=== PATIENT | female | born 1945 | race Caucasian/White ===

== ENCOUNTER → 2021-02-13 10:11 | Outpatient (CLI) | payer MEDICARE, BC, SELFPAY ==
[2021-02-04 16:01] VITALS: BMI 36.6
--- NOTE | 2021-02-13 10:13 | US_ITS ---
STUDY: ULTRASOUND BREAST - RIGHT REASON FOR EXAM: Female, 76 years old. Abnormal screening mammogram. Right breast mass. TECHNIQUE: Axial and longitudinal images of the RIGHT breast were performed with a high resolution ultrasound transducer. # OF IMAGES: 40 COMPARISON: Comparison is made with prior mammogram done earlier today. FINDINGS: RIGHT Breast: There is a 9.1 cm x 7.7 cm x 3.5 cm complex solid and cystic mass in the upper outer quadrant of the breast corresponding to the mammographic findings. There is a 1.1 cm x 0.9 cm x 1 cm hypoechoic irregular mass at the 5 o''clock position of the breast at 5 cm from the nipple. A biopsy is recommended. US/Breast Limited Unilateral IMPRESSION: 1.1 cm x 0.9 cm x 1 cm irregular hypoechoic solid mass at the 5 o''clock position of the breast at 5 cm from the nipple. A biopsy is recommended. 9.1 cm x 7.7 cm x 3.5 cm complex solid and cystic mass occupying the upper outer quadrant of the right breast. ASSESSMENT CATEGORY: BIRADS Category 5: Highly Suggestive of Malignancy - Appropriate Action Should Be Taken. A letter regarding these results will be sent to the patient by the facility within 30 days. Electronically Signed: Anam Peña MD at 11:40 EDT , Service support ,
--- NOTE | 2021-02-13 10:13 | BI_ITS ---
MAMMOGRAPHY - BILATERAL DIAGNOSTIC REASON FOR EXAM: Female, 76 years old. Recent drainage of a right cyst/abscess. PERTINENT HISTORY: Non-contributory. TECHNIQUE: Digital bilateral breast abbie (3D mammographic acquisition) in the CC and MLO projections. 2-D mediolateral oblique (MLO) and craniocaudad (CC) views of both breasts were obtained. CAD: Full Field Digital Mammography with Computer Added Detection was performed. COMPARISON: None. Baseline examination. FINDINGS: Breast Composition: There are scattered areas of fibroglandular density. There is a 9.5 cm x 12.8 cm soft tissue density in the upper lateral aspect of the right breast. Air-fluid levels are seen in keeping with a history of recent drainage. This also evidence of a 1 cm x 0.9 cm irregular nodule in the deep inferior medial portion of the right breast. Correlation with ultrasound of both abnormalities recommended. No other significant abnormalities are identified. BI/DIAG MAMM W/CAD, BILAT IMPRESSION: Suspicious 1 cm x 0.9 cm nodule in the deep inferior medial portion of the right breast. Correlation with ultrasound is recommended. Correlation with ultrasound of the large fluid collection in the upper outer quadrant of the right breast is recommended as well. ASSESSMENT CATEGORY: BIRADS Category 0: Incomplete. Need additional imaging evaluation. A letter regarding these results will be sent to the patient by the facility within 30 days. Approximately 10% of breast cancers are not detected by mammography. A normal mammogram should not delay biopsy of a clinically suspicious abnormality. Electronically Signed: Anam Peña MD at 11:08 EDT , Service support ,
== END ==
PROVIDERS: Referring Provider Surgery; Visit Provider Surgery
DX: N63.10 Unspecified lump in the right breast, unspecified quadrant (principal); R92.8 Other abnormal and inconclusive findings on diagnostic imaging of breast
CPT/HCPCS: 76642; 77062; 77066; G0279

== ENCOUNTER → 2021-02-19 | Outpatient (CLI) | payer MEDICARE, BC, SELFPAY ==
--- NOTE | 2021-02-19 | IMM_PTH ---
PATIENT: RUTH THOMSON LOC: [facility] U#:[id number] AGE/SX: 76/F ROOM: RE02/19/[address]: Dr. Mainor Rene MD : 1945 BED: DIS: 02/19/2021 SPEC #: [id number] RECD: 02/23/21 11:49 STATUS: ANGELIKA REQ #: [id number] JT: 02/19/21 00:[address]: Mainor Rene DEPT: IMMUNOHISTOCHEMISTRY RECD BY: Stephanie Hyman ENTERED: 02/23/21 11:51 SP TYPE: IMMUNO OTHR DR: No Primary Care Phys Tissues: Right breast, NOS Procedures: CALPONIN-1 (add) CK5-6 (add) CK8 (add) E-CAD (add) HER2 URIEL (add) KI-67 (add) P53 (add) MA (add) IN SITU HYBRIDIZATION P40 (add) ER (initial) PHYSICIAN & INSTITUTION [address] [address] SPECIMEN INFORMATION: Tissue Source: Right breast Clinical Info: Right breast mass and seroma Specimen Number: [id number] CPT code: 64967, 46236 x6, 77561 x3, 38338 x2 METHODOLOGY: Deparaffinized sections of prefer/formalin-fixed tissue or PAP/DQ stained slides are incubated with monoclonal/polyclonal antibodies/oligonucleotide probes. Localization is made via biotin free immunoperoxidase method. Appropriate controls are performed and reacted as expected. Results on target cell population are indicated in the following table: RESULTS: ANTIBODY / CLONE RESULT E-Cad (ECH-6) positive CK8 (53remzU67) positive Calponin-1 (BH811V) negative CK5-6 (D5 & 1684) negative P40 (BC28) negative P53 (DO-7) positive, rare cells Ki-67 (30-9) positive, low MORPHOMETRIC ANALYSIS ER (clone 6F11) >95%, strong intensity MA (clone 16/1E2) 48%, weak intensity Her-2Neu (clone CB11) 2+ The prognostic test for HER2 is performed on formalin-fixed paraffin embedded tissue. A 3+ (positive) staining pattern is defined as intense, homogeneous, complete, circumferential membranous staining in >10% of contiguous tumor cells. A similar weak (2+) staining pattern is interpreted as equivocal. AMY follow-up testing is recommended for all equivocal cases. Positivity/negativity for ER/MA is reported if > or < 1% of the tumor cells are immuno- reactive, respectively. The ASCO/CAP criteria is used for scoring. Reference: Journal of Clinical Oncology, 2013; 31:1220-7342 & 2010; 16:2349-9712. Duration of fixation: 77 Hrs; Sample Adequate: Yes. These assays have not been validated on decalcified tissues. Results should be interpreted with caution given the likelihood of false negativity on decalcified specimens. These tests were developed and their performance characteristics determined by [facility]. They may not have been cleared or approved by the U.S. Food and Drug Administration. The FDA has determined that such clearance or approval is not necessary. The above immunohistochemical/dualISH markers are ordered and reviewed by the Pathologist. 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 Positive for estrogen receptors (favorable prognostic indicator). Positive for progesterone receptors (favorable prognostic indicator). Equivocal for overexpression of SSV7qxh. SJ:navid 02/24/2021 ADDENDUM ADDENDUM ADDENDUM ADDENDUM ADDENDUM ADDENDUM ADDENDUM ADDENDUM ADDENDUM ADDENDUM ADDENDUM ADDENDUM ADDENDUM ADDENDUM ADDENDUM ADDENDUM ADDENDUM ADDENDUM ADDENDUM ADDENDUM ADDENDUM ADDENDUM 02/25/2021 12:00 ADDENDUM 02/25/2021 12:00 ADDENDUM 02/25/2021 12:00 ADDENDUM 02/25/2021 12:00 ADDENDUM 02/25/2021 12:00 IN SITU HYBRIDIZATION (AMY) FOR HER2 Interpretation: Negative / Not Amplified HER2 : CEP-17 Ratio: 0.9 Average HER2 Signal: 1.6 Average CEP-17 Signal: 1.85 Number of Tumor Cells Scanned: 50 Interpretative Information: The INFORM HER2 Dual AMY DNA Probe Cocktail assay is performed on formalin-fixed paraffin embedded tissue and determines HER2 gene status by detecting HER2 copies via silver in situ hybridization (SISH) and Chromosome 17 copies via chromogenic red in situ hybridization on tumor cells. A minimum of 20 cells representing > 10% of contiguous and homogeneous invasive tumor cells were analyzed. HER2 gene status is classified as Non-amplified (HER2/Chr17 ratio < 2.0) or Amplified (HER2/Chr17 ratio greater than or equal to 2.0). If the resulting HER2/Chr17 ratio falls within 1.8 - 2.2 (Borderline), retesting by FISH is recommended. Reference: Daniel AC, Deandre HUIZARH, Juanpablo DG, et al: Recommendations for Human Epidermal Growth Factor Receptor 2 Testing in Breast Cancer: [place] Society of Clinical On[employer] / [employer] of [place] [employer] Clinical Practice Guideline Update. J Clin Oncol 31:4152-3606, 2013. SJ:navid 02/25/2021
--- NOTE | 2021-02-19 14:30 | BRBX_PTH ---
PATIENT: RUTH THOMSON LOC: [facility] U#:[id number] AGE/SX: 76/F ROOM: RE02/19/[address]: Dr. Mainor Rene MD : 1945 BED: DIS: 02/19/2021 SPEC #: [id number] RECD: 02/19/21 15:34 STATUS: ANGELIKA CHUNG #: [id number] JT: 02/19/21 14:[address]: Mainor Rene DEPT: SURGICAL PATHOLOGY RECD BY: Estelita Nicholas ENTERED: 02/20/21 10:45 SP TYPE: BREAST BX OTHR DR: No Primary Care Phys Tissues: Right breast, NOS Procedures: Surgery Specimen Level IV HEADER OPERATION: Right breast biopsy and seroma drainage PRE-OP DIAGNOSIS: Right breast mass and seroma right breast TISSUE SUBMITTED: Right breast tissue MICROSCOPIC DIAGNOSIS Right breast mass, core biopsy: Invasive ductal carcinoma, nuclear grade 1-2/3 (1 cm in greatest length). See comment. REMINGTON:navid 02/23/2021 COMMENT Immunohistochemistry ([id number]) supports the above diagnosis. ER/MS/Mvs4wwd studies are being performed on sections of tumor and the results from this study will be reported separately ([id number]). MICROSCOPIC DESCRIPTION Slides are reviewed. GROSS DESCRIPTION Received in fixative is one container labeled with the patient name and designated right breast. The specimen consists of two elongated fragments of castillo-yellow fibroadipose tissue that in aggregate measure 1.5 x 0.2 x 0.1 cm. The entire specimen is submitted in one cassette. / REMINGTON:navid 02/20/21 TC:0 CPT: 69497
== END | disposition home or self-care (01) ==
LOC: LABSPEC 02-20 08:12
PROVIDERS: Referring Provider Surgery; Visit Provider Surgery
DX: C50.911 Malignant neoplasm of unspecified site of right female breast (principal)
CPT/HCPCS: 88305; 88341; 88342; 88368

== ENCOUNTER 2021-03-17 10:27 | Day surgery (SDC) | payer MEDICARE, BC, SELFPAY ==
--- NOTE | 2021-03-17 | AXNB_PTH ---
PATIENT: RUTH THOMSON LOC: [facility] [place] U#:[id number] AGE/SX: 76/F ROOM: RE03/17/[address]: Dr. Sherin Linton MD : 1945 BED: DIS: 03/17/2021 SPEC #: [id number] RECD: 03/17/21 14:17 STATUS: ANGELIKA REAsh #: [id number] JT: 03/17/21 00:[address]: Sherin Linton DEPT: SURGICAL PATHOLOGY RECD BY: Stephanie Hyman ENTERED: 03/17/21 14:59 SP TYPE: AX NODE BX OTHR DR: No Primary Care Phys Tissues: A - Axillary lymph node, NOS B - Axillary lymph node, NOS C - Right breast, NOS D - Right breast, NOS E - Right breast, NOS F - Right breast, NOS Procedures: Frozen Section (charge) Frozen Section Add'l ([facility]) Surgery Specimen Level IV Surgery Specimen Level V HEADER OPERATION: Excision seroma cavity right breast, 9 o?clock location PRE-OP DIAGNOSIS: Right breast mass, cancer TISSUE SUBMITTED: A - Right axillary sentinel node, FS, B - Right axillary sentinel lymph node #2, FS, C - Right breast mass, long suture - lateral, short suture - superior, D - Right breast new deep margin, long lateral suture, short suture - new deep margin, E - Seroma cavity posterior and deep, single long suture - lateral, short double stitch - superior, long double stitch margin - posterior, F - Anterior medial border seroma cavity, short single stitch - medial, single long stitch - anterior, double long stitch - new medial margin FROZEN SECTION DIAGNOSIS A. Right axillary sentinel lymph node, biopsy: One lymph node, positive for metastatic carcinoma. B. Right axillary sentinel lymph nodes #2, biopsy: Two out of two lymph nodes, negative for metastatic carcinoma. REMINGTON:navid 03/17/2021 MICROSCOPIC DIAGNOSIS A. Right axillary sentinel lymph node, biopsy: One lymph node, positive for metastatic carcinoma. See comment. B. Right axillary sentinel lymph nodes #2, biopsy: Two out of two lymph nodes, negative for metastatic carcinoma. See comment. C. Right breast mass, needle localization lumpectomy: Invasive ductal carcinoma. Ductal carcinoma in situ. See cancer summary in the comment section. D. Right breast new deep margin: Negative for carcinoma. E. 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 See cancer summary in the comment section. F. Seroma cavity, anterior and medial border: Fibrocystic changes and intraductal hyperplasia with focal atypia. Focal fibrosis and chronic inflammation consistent with changes consistent with seroma cavity. REMINGTON:navid 03/20/2021 COMMENT A. The largest focus of metastasis measures 0.6 cm in greatest dimension. Extranodal extension is not identified. B. The lymph nodes are negative for metastatic carcinoma on multiple H & E levels and immunohisto-chemical stains for cytokeratins ([id number]). BREAST CANCER SUMMARY (Specimen A, B, C & D): Procedure - excision with needle localization Specimen laterality ? right Invasive tumor: Tumor site ? invasive carcinoma ? lower inner quadrant, as per EMR. Tumor size ? 1.2 x 1 x 1 cm Histologic type ? invasive ductal carcinoma, not otherwise specified Histologic grade (Perez grade): Glandular/tubular differentiation score - 3 Nuclear pleomorphism score - 1 Mitotic count score - 1 Overall grade ? grade 1 (score of 5) Tumor focality ? single focus of invasive carcinoma Ductal carcinoma in situ ? present. Size (extent) of DCIS: ductal carcinoma present adjacent to the invasive carcinoma and comprise about 20% of total tumor volume. Number of blocks with DCIS ? 2 Number of blocks examined ? 10 Architectural pattern ? comedo, solid and solid papillary carcinoma Nuclear grade ? grade 1 Necrosis ? present, central (expansive ?comedo? necrosis). Lobular carcinoma in situ ? not present Tumor extension: Skin ? not present Nipple ? not applicable Skeletal muscle ? no skeletal muscle is present Margins: Invasive carcinoma margin ? invasive carcinoma and ductal carcinoma in situ are 0.1 cm away from the closest posterior margin in the specimen C; however, the new posterior margin, specimen D is 0.5 cm in greatest thickness and negative for carcinoma. Overall, the both invasive and in situ carcinoma are 0.6 cm away from the posterior margin. Ductal carcinoma in situ margin ? DCIS is 0.2 cm away from the closest inferior margin. Regional lymph nodes: Total number of lymph nodes examined ? 3 Number of sentinel lymph nodes examined - 3 Number of lymph nodes with macrometastases ? 1 Number of lymph nodes with micrometastases and isolated tumor cells ? 0 Size of largest metastatic deposits ? 0.6 cm Extranodal extension ? not present. Treatment effect ? no known presurgical therapy. Lymphvascular invasion ? not identified Dermal lymphvascular invasion ? not identified Additional Pathologic Findings ? fibrocystic changes Ancillary Studies: Previously performed ([id number] / [id number]) ER: positive (>95%, strong intensity) AK: positive (48%, weak intensity) Mgy6lnl: equivocal (2+) Rwu0fti by AMY: Negative / not amplified Microcalcifications ? not identified Clinical History - Please make reference to previous specimen ([id number]) right breast mass, core biopsy with diagnosis of invasive ductal carcinoma. Radiologic findings ? mass PATHOLOGIC STAGE: pT1b pN1a(sn) pMx BREAST CANCER SUMMARY (Specimen E & F) Procedure - excision Specimen laterality ? right Tumor site ? upper outer quadrant as per EMR Size (extent) of DCIS - largest focus of DCIS measures 2.5 cm in greatest dimension. As per EMR, the mammography report shows a solid cystic mass 12.8 cm in greatest dimension. Correlation with clinical and radiologic findings are necessary for exact size of lesion. Number of blocks with DCIS ? 9 Number of blocks examined - 24 Histologic type ? encapsulated papillary intraductal carcinoma in situ without invasive carcinoma. Histologic grade ? grade 1 (low) Necrosis ? not identified Margins ? margins uninvolved by DCIS. The tumor is 0.2 cm away from the closest posterior margin. Regional lymph nodes ? please see specimen A & B. Ancillary studies ? not performed for DCIS. Ancillary studies are performed on invasive carcinoma. Microcalcifications ? not identified Clinical history ? as per EMR, the patient has clinical history of seroma. Radiologic findings ? solid, cystic mass The above summary is in compliance with [employer] [place] [employer] (CAP) Cancer Protocols Checklist and [place] Joint Committee on Cancer (AJCC), Staging Manual, 8th Ed. This case was discussed with Dr. Linton on 03/20/21. Case has been reviewed in consultation with Dr. Driver who concurs with the above diagnosis. IDC:AM MICROSCOPIC DESCRIPTION Slides are reviewed. GROSS DESCRIPTION A - Received fresh for frozen section diagnosis labeled with the patient's name is a specimen designated right axillary sentinel lymph node. The specimen consists of a piece of adipose tissue containing one nodule, consistent with lymph node, measuring 4.5 x 2.5 x 1.5 cm. The specimen is serially sectioned and submitted entirely for frozen section diagnosis in four cassettes. / : 03/17/21 B - Received fresh for frozen section diagnosis labeled with the patient's name is a specimen designated right axillary sentinel lymph node #2. The specimen consists of a piece of adipose tissue containing two nodules, consistent with lymph nodes, measuring 3 x 2 x 0.7 cm. Two lymph nodes are identified measuring 1 and 1.5 cm in greatest dimension. The entire specimen is submitted for frozen section diagnosis as follows: 1 - one bisected lymph node, 2 - one lymph node. / : 03/17/21 C - Received fresh for intraoperative consultation labeled with the patient's name is a specimen designated right breast mass.? The specimen consists of a piece of fibroadipose tissue with needle localization measuring 3.5 x 3 x 2 cm. The specimen is oriented by a suture as follows: long suture - lateral, short suture - superior. The specimen is inked as follows: anterior - yellow, posterior - black, superior - blue, inferior - green, medial - red and lateral - orange. Serial sections reveal a castillo, indurated tumor mass measuring 1.2 x 1 x 1 cm. This mass is present close to the posterior margin of the specimen. This information is conveyed to the surgeon intraoperatively. Sections of the rest of the specimen reveal castillo-yellow adipose cut surfaces with scant fibrous area. The entire specimen is submitted in seven cassettes as follows: 1 - perpendicular medial and lateral margin, 2-7 - rest of the specimen from medial margin to lateral margin. / : 03/17/21 D - Received in fixative is one container labeled with the patient's name and designated right breast new deep margin, posterior - long lateral, new deep margin - short suture. The specimen consists of a piece of adipose tissue measuring 2 x 1.5 x 0.5 cm. The specimen is inked as follows: new posterior margin - black, old margin - blue, medial margin - red, lateral margin - orange. The specimen is serially sectioned and submitted entirely in three cassettes. / : 03/17/21 E - Received in fixative is one container labeled with the patient's name and designated seroma cavity posterior and deep, single long suture - lateral, short double stitch - superior, long double stitch margin - posterior. The specimen consists of a flat piece of fibroadipose tissue. One surface is congested and hemorrhagic consistent with hemorrhagic cavity. The specimen measures 12.5 x 7 x 0.7 cm. The new posterior margin shows adipose tissue. The specimen is inked as follows: posterior - black, superior - blue, inferior - green, medial - red and lateral - orange. Sections do not reveal any mass lesion. Instructional Leader sections are submitted in six cassettes as follows: 1 - perpendicular medial, lateral, superior and inferior margins, 2-6 - care support representative sections of seroma cavity including posterior margin. / : 03/18/21 More sections are submitted in 8 more cassettes, -14. / : 03/19/21 F - Received in fixative is one container labeled with the patient's name and designated anterior medial border seroma cavity, short single stitch - medial, single long stitch - anterior, double long stitch - new medial margin. The specimen consists of a piece of fibroadipose tissue measuring 8.5 x 3 x 1 cm. The specimen is oriented is follows: short single stitch - medial, single long stitch - anterior, double long stitch - new medial margin. The specimen is inked as follows: new medial margin - red, anterior margin - yellow, posterior margin - blue and inferior margin - green. Opposite margin to the new medial margin shows congested, hemorrhagic area and is not inked. Sections do not reveal any mass lesion. Instructional Leader sections are submitted in six cassettes as follows: 1 - presumed superior and inferior margin, anterior and posterior margin, 2-6 - care support representative sections of seroma cavity including new medial margin. / : 03/18/21 The rest of the specimen is submitted in four more cassettes, 7-10. / : 9/16/21 TC:0 CPT: 53121 x4, 08519 x2, 83449 x2, 44227 x4, 69936 ADDENDUM ADDENDUM ADDENDUM ADDENDUM ADDENDUM ADDENDUM ADDENDUM ADDENDUM 10/20/2021 15:39 ADDENDUM 10/20/2021 15:39 ADDENDUM 10/20/2021 15:39 ADDENDUM 10/20/2021 15:39 ADDENDUM 10/20/2021 15:39 An order for Oncotype testing was received from Dr. Fernandez. This necessitated case review, block and slide selection by pathologist at [facility]. Breast Cancer Recurrence Score = 13 Results of the complete Oncotype testing ([facility]undo report) are viewable in EMR under: Reports - Pathology - Lab Pathology Report, Scanned.
--- NOTE | 2021-03-17 | IMM_PTH ---
PATIENT: RUTH THOMSON [place] [facility] [place][id number] AGE/SX: 76/F ROOM: RE03/17/[address]: Dr. Sherin Linton MD : 1945 BED: DIS: 03/17/2021 SPEC #: [id number] RECD: 03/19/21 12:42 STATUS: ANGELIKA REQ #: [id number] JT: 03/17/21 00:[address]: Sherin Linton DEPT: IMMUNOHISTOCHEMISTRY RECD BY: Stephanie Hyman ENTERED: 03/19/21 12:46 SP TYPE: IMMUNO OTHR DR: No Primary Care Phys Tissues: B - Axillary lymph node, NOS Procedures: CK5-6 (initial) SMA (add) CALPONIN-1 (add) CK7 (add) Pankeratin (initial) Pankeratin (add) P40 (add) PHYSICIAN & INSTITUTION [place] [address] SPECIMEN INFORMATION: Tissue Source: B ? Right axillary sentinel lymph nodes #2, E ? Seroma cavity, posterior and deep Clinical Info: Right breast mass, cancer Specimen Number: [id number] B1, B2 & E2 CPT code: 10481 x2, 25055 x6 METHODOLOGY: Deparaffinized sections of prefer/formalin-fixed tissue or PAP/DQ stained slides are incubated with monoclonal/polyclonal antibodies/oligonucleotide probes. Localization is made via biotin free immunoperoxidase method. Appropriate controls are performed and reacted as expected. Results on target cell population are indicated in the following table: RESULTS: ANTIBODY / CLONE RESULT Block B1 AE1-3 (AE1/AE3/PCK26) negative CK7 (OV-TL12/30) negative Block B2 AE1-3 (AE1/AE3/PCK26) negative CK7 (OV-TL12/30) negative Block E2 Calponin-1 (VM825Y) negative P40 (BC28) negative Actin (1A4) negative CK5-6 (D5 & 1684) negative These tests were developed and their performance characteristics determined by [facility]. They may not have been cleared or approved by the U.S. Food and Drug Administration. The FDA has determined that such clearance or approval is not necessary. The above immunohistochemical/dualISH markers are ordered and reviewed by the Pathologist. INTERPRETATION: B. Right axillary sentinel lymph nodes #2, biopsy: Two out of two lymph nodes, negative for metastatic carcinoma. E. Seroma cavity: Papillary intraductal carcinoma in situ. SJ:navid 03/20/2021 Papillary intraductal carcinoma in situ can be negative of basal cell marker. Case has been reviewed in consultation with Dr. Driver who concurs with the above diagnosis. IDC:AM
--- NOTE | 2021-03-17 10:30 | NM_ITS ---
PROCEDURE: NUCLEAR MEDICINE Injection [place] Node - RIGHT breast(s). REASON FOR EXAM: Female, 76 years old. Right breast cancer. TECHNIQUE: [place] node localization using radionuclide methods of the RIGHT breast(s) was performed following subcutaneous administration of 1.1 mCi of of sulfur colloid Tc-99m. FINDINGS: 1.1 mCi of Tc labeled sulfur colloid was injected subcutaneously in 4 equal aliquots in the subareolar region. NM/Lymph Node Injection Only IMPRESSION: Subcutaneous injection of 1.1 mCi of technetium labeled sulfur colloid in 4 equal aliquots in the subareolar region of the right breast. Electronically Signed: Anam Peña MD at 11:29 EDT , Service support ,
--- NOTE | 2021-03-17 11:31 | PCM.HP.BLA ---
History and Physical Date of Admission: 03/17/21 Date of Service: 03/11/21 Intake Intake Visit Reasons: BREAST DRAIN Chief Complaint: F/U breast drainage/pathology Allergies No Known Allergies Allergy (Verified 03/11/21 14:47) Medications ascorbic acid (vitamin C) 500 mg capsule mg PO 02/04/21 [History Confirmed 03/11/21] cholecalciferol (vitamin D3) 25 mcg (1,000 unit) capsule 25 mcg PO DAILY 02/04/21 [History Confirmed 03/11/21] ibuprofen 200 mg tablet 200 mg PO Q6H PRN 02/04/21 [History Confirmed 03/11/21] zinc 50 mg tablet 50 mg PO DAILY 02/04/21 [History Confirmed 03/11/21] [facility] Medical History (Updated 03/11/21 @ 15:[address] 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 Patient did meet with radiation oncology and is wanting to get a lumpectomy and will do radiation afterwards. Patient states area has filled up again denies any pain or tenderness. ROS General General: No weight change or fatigue HEENT HEENT: No difficulty swallowing Endo Endocrine: No thyroid disease Breast Breast: Yes abnormal US Musc Musculoskeletal: No back problems or arthritis Cardio Cardiovascular: No pacemaker, heart disease, atrial fibrillation, high blood pressure, heart attack, heart stent, palpitations or chest pain Psych Psychiatric: No depression or anxiety Resp Respiratory: No shortness of breath, No cough, No COPD, No asthma and No emphysema Gastro Gastrointestinal: No abdominal pain, No nausea or vomiting, No diarrhea, No constipation, No blood in stool, No acid reflux, No hemorrhoids, No ulcers, No gallbladder problem and No black,tarry stools [place] Hematologic: No blood thinners Exam Const General: cooperative Orientation: alert and oriented x3 HENMT Head: normal to inspection Neck Neck: normal visual inspection Chest Other: Enlargement of the right breast with a tense fluid collection laterally at 9:00, 5:00 breast lesion seen with bedside ultrasound. Ecchymosis from previous biopsy improving Resp Effort & Inspection: normal respiratory effort Cardio Rate: regular rate COVID (Procedure Consent) Procedure Criteria Procedure Criteria: Yes Elective The surgeon/proceduralist and patient have discussed in detail the risk of exposure to and/or potential harm posed by the COVID-19 virus with having a surgery/procedure at this time versus the risk of delaying the surgery/procedure. It is not possible to know either the risk of delaying the surgery or procedure or chance of getting an infection with perfect accuracy, but a joint decision was made between the patient and the surgeon/proceduralist to proceed at this time with the scheduled surgery/procedure as indicated on the consent form. Assessment and Plan Assessment and Plan (1) Breast cancer, right: Status: Acute Qualifiers: Breast location: lower inner quadrant of breast Estrogen receptor status: positive Patient sex: female Qualified Code(s): C50.311 - Malignant neoplasm of lower-inner quadrant of right female breast; Z17.0 - Estrogen receptor positive status [ER+] (2) Breast mass, right: Status: Acute Comment: Clinically liquefied hematoma--hx of falls per patient, drained about 320-400 cc ss for past 4 week, now 320 cc again Plan - Dr. Sherin Linton MD: Patient had repeat aspiration of the right breast at 9:00 at the area is prepped draped in usual sterile fashion and local of 1% lidocaine was used. 300 cc of serosanguineous fluid was removed. Patient tolerated procedure well. OpSite was placed. Did discuss the procedure with the patient as well as her [id number] who is also a account technician via the phone. Plan for excision of her right breast seroma cavity at 9:00, right lumpectomy ultrasound-guided with sentinel node biopsy and injection of blue dye/radiotracer. Discussed with the patient risks including but not limited to bleeding, infection, need for further surgery either at the cavity site or margins for the breast cancer. Also discussed possible need for axillary lymph node dissection. Previously also discussed increased risk for lymphedema if an axillary lymph node dissection was needed. Patient did meet with radiation oncology was agreeable for radiation after lumpectomy. Patient no further question at this time. Sherin Linton M.D. Pager: [phone] [facility] [address] [place] [address], [facility], [address] [place] [address] Office: [phone] Plan Details Follow Up: We will schedule surgery Coding Level of Care Code Attention Courtesy Driver Diagnoses Breast cancer, right C50.311; Z17.0 Breast location: lower inner quadrant of breast Estrogen receptor status: positive Patient sex: female Breast mass, right N63.10 03/11/21 1510<Electronically signed by Sherin Linton MD>Date Sherin Linton MD
[2021-03-17 11:41] VITALS: BP 127/73; PULSE 85; RESP 16; TEMP 36.1; O2SAT 98; BMI 36.6
[2021-03-17] MEDS: Lactated Ringers 1,000 ML 100 ML IV ×2 (12:05→14:30)
[2021-03-17] MEDS: Cefazolin 2 GM in 0.9% Normal Saline 100 ML IV (13:17)
[2021-03-17] MEDS: Isosulfan Blue 1% 5 ML Vial (13:43)
[2021-03-17] MEDS: 0.9% Normal Saline (Pres. free 10 ML Vial (13:43)
--- NOTE | 2021-03-17 14:51 | BI_ITS ---
SURGICAL BREAST SPECIMEN RADIOGRAPH CLINICAL: Document presence of mass in biopsy specimen. FINDINGS: Specimen shows presence of mass. Electronically Signed: Anam Peña MD at 15:25 EDT , Service support , BI/Breast Biopsy Specimen
--- NOTE | 2021-03-17 15:26 | OP.PCM_ITS ---
Report of Operation Date of Procedure: 03/17/21 Pre-Operative Diagnosis: Right breast cancer at 5:00, right breast seroma at 9: 00 Post-Operative Diagnosis: Same Surgery/Procedure Performed:: Right ultrasound-guided needle localization lumpectomy, sentinel lymph node biopsy, injection of blue dye and nuclear tracer, excision of right breast seroma cavity at 9:00 and aspiration of right breast seroma cavity. Description of Surgical Findings:: 1 out of 3 lymph nodes positive for metastatic on frozen. Surgeon: Sherin Linton Type of Anesthesia: General/Supplemental Anesthesiologist: Eldon García Special Medications: Ancef 2 g IV x1 Specimen's removed: 1. Right axillary sentinel node, 2. Additional right axillary sentinel nodes, 3. Right breast mass, 4. New deep margin of right breast mass, 5. Posterior/deep seroma cavity margin, 6. Medial/anterior seroma cavity margin. Estimated Blood Loss (mL): <15 cc Fluids Replaced: Per anesthesia Description of Procedure: In radiology the breast tissue was injected with TC-9 9 sulfur colloid. 90 minutes later the patient was taken to the operating room and general anesthesia was induced. Localization studies were reviewed. A timeout was completed verifying correct patient, procedure, site, positioning, special equipment prior to beginning procedure. The right breast was prepped with alcohol and the seroma cavity was drained for 390 cc of serosanguineous fluid. 5 cc of Lymphazurin 1% blue dye was injected in the 4 quadrants periareolar along with 10 cc of normal saline after prepping the subareolar area with alcohol. This was massaged gently for 5 minutes. The right breast and axilla were prepped and draped in usual sterile fashion. Handheld gamma probe was used to identify the location of the hottest spot in the axilla. Prior to the incision, the counts were 21. The incision was made in the blue and hot node was identified. The probe was placed in contact with the node in the 10 count was 1127. An additional small node was palpated and noted to also be hot. Additional node 10 count was 901. The bed of the node measured 16 counts. No additional blue or hot nodes were detected. Ultrasound was used to place the Kopan's needle just posterior to the mass. A radial incision was planned in such a way as to minimize the amount of dissection to reach the mass. Flaps were raised in the location of the wire confirmed. The wire was delivered into the wound. 2 silk [id number] stay suture was placed around the wire and used for traction. Dissection was then taken down circumferentially, taking care to include the entire localization needle and wide margin of grossly normal tissue. The specimen and entire localizing wire were removed. The specimen was oriented and sent to radiology with the localization studies. Confirmation was received that the entire target lesion had been resected. Additional new deep margin was also taken. Medium clips were placed at the deep cavity for radiation guidance. The wound was irrigated with sterile water. Hemostasis was checked. Radial incision at 9:00 was made and the seroma cavity was entered. Additional serosanguineous fluid was irrigated. The seroma cavity margin was dissected with electrocautery. 2 specimens were sent a deep/posterior margin and a medial/anterior margin. Did appear to have normal breast tissue adjacent to the seroma cavity. Curettes were used on the cavity that was adjacent to the skin unable to be resected. Wound was irrigated with sterile water. Hemostasis was achieved. The both breast incisions and axillary incision were closed with interrupted sutures of 3-0 Vicryl and subcuticular sutures of 4-0 Monocryl. No attempt was made to close the space. A dressing of fluff gauze and supportive bra placed. The patient tolerated procedure well was taken to the postanesthesia care in stable condition. Grafts/Implants Used: none Complications none
--- NOTE | 2021-03-17 15:36 | EX.PCM.DISCH ---
Discharge Instructions Procedure Breast Surgery Diet Discharge Diet: No restrictions Activity Discharge Activity: May Not Drive (for 2-3 days or while taking narcotic pain meds.) May shower in (days): 1 Lifting Restrictions: 10 pounds for 1 week. Additional Activity Instructions:: Try to keep pressure dressing at the 9:00 incision. Dressing / Incision Call your doctor if your incision/area has: Continuous Slow Oozing, Sudden Increased Bleeding, Increased Pain/ Swelling and Increased Redness Call your doctor if you observe: Fever of 101 or Higher Suture Line Care: Avoid Pulling/Pushing and Avoid Pinching/Bending Remove Dressing in: 1 day Additional Dressing/Incision Instructions:: Remove bulky dressing tomorrow--tape/gauze. May leave any op-site dressing for 2-3 days. Follow Up Care Please Follow Up With: Sherin Linton MD When: Please call [phone] for an appointment to be seen in 1-2 week. Test Results: Test results from this visit will be discussed in further detail at your follow-up appointment, if applicable. Discharge Plan Admission Attending Provider: Sherin Linton Primary Care Provider: Care PhysicianBecky Primary Discharge Orders/Prescriptions Prescriptions: New oxycodone-acetaminophen [Percocet] 5-325 mg tablet 1 tab PO Q6H PRN (Reason: pain) 3 Days Qty: 10 RF: 0 Continued ibuprofen [Advil] 200 mg tablet 200 mg PO Q6H PRN (Reason: Pain) RF: 0 zinc 50 mg tablet 50 mg PO DAILY RF: 0 cholecalciferol (vitamin D3) 25 mcg (1,000 unit) capsule 25 mcg PO DAILY RF: 0 ascorbic acid (vitamin C) 500 mg capsule 500 mg PO DAILY RF: 0 Referrals / Follow Up: Care PhysicianBecky Primary [Primary Care Provider] - Disposition Disposition (needs filled in before D/C Order can be placed): Home, Self Care
[2021-03-17] MEDS: Lidocaine 1% /Epi 1:100 (20ml) 20 ML Vial (15:53)
[2021-03-17 16:09] VITALS: BP 127/73; BP 153/66; PULSE 84; RESP 16; TEMP 36.1; O2SAT 98
[2021-03-17 16:15] VITALS: BP 127/73; BP 130/61; PULSE 78; RESP 18; O2SAT 99
[2021-03-17 16:30] VITALS: BP 127/73; BP 151/75; PULSE 84; RESP 18; O2SAT 94
[2021-03-17 16:45] VITALS: BP 127/73; BP 151/65; PULSE 82; RESP 18; TEMP 36.1; O2SAT 96
[2021-03-17 18:20] VITALS: BP 127/73; BP 173/78; PULSE 99; RESP 18; TEMP 36.1; O2SAT 97
== END 2021-03-17 18:35 | disposition home or self-care (01) ==
LOC: SDC 10:28 → AC 10:30
PROVIDERS: Referring Provider Surgery; Visit Provider Surgery
PROC: 0HBV0ZZ Excision of Bilateral Breast, Open Approach (ICD-10-PCS; CPT 19302; principal; 2021-03-17 13:15)
DX: C77.3 Secondary and unspecified malignant neoplasm of axilla and upper limb lymph nodes (principal); C50.311 Malignant neoplasm of lower-inner quadrant of right female breast; Z17.0 Estrogen receptor positive status [ER+]
CPT/HCPCS: 00400; 19301; 38500; 38792; 76098; 87426; 88305; 88307; 88331; 88332; 88341; 88342; A9541; C9803; J7120; J2405; J3490; Q9968

== ENCOUNTER 2021-11-02 11:00 | Outpatient (RCR) | payer MEDICARE, BC, SELFPAY ==
--- NOTE | 2021-10-01 13:20 | HP.PTEVAL ---
Patient's Visit Information RUTH THOMSON is a 76 year old F referred to Physical Therapy by Dr. Raj Heath MD with a diagnosis of Right Knee Pain. Date of Evaluation: 10/01/21 Physical Therapist: Ofe Quezada DPT - Visit Plan Frequency: 2x /Week Duration: 4 Weeks Plan: Prehab for TKR - Subjective Patient reports that she needs a right knee replacement-January 20, [address] Heath- she plans to get through the next few months due to two kiddos to graduate in [place] and [place]. The plan is aquatic therapy to get her through until surgery. She compensates with her left LE. Pain is along the medial joint line. Worst: 8/10 Agg: sitting for long periods of time and getting up, scrubbed the floor. She is fully I with all ADL's. Best: 0/10 Eases: pain medication. Was given Meloxicam. Does radiate to the calf but not to the hip. Describes the pain as dull and achy. No N/T in the toes. Sleep: not disturbed. Takes some time for the pain the pain to diminish. Does not use ice or heat. No change in bowel or bladder. Recent x-rays. PMHx: no changes since Dec at hospital. - Objective Posture: FH, RS- can correct but does not maintain. Gait: antalgic- straight cane- decrease step length and jack. Valgus right>left Stairs: asc/desc recip with 2 HR-non recip- when asked to perform recip she reports significant pain HR: able with UE A Palpation: tender along medial joint line SLS: weight shift but unable to SLS ROM: 10-95 degrees Flex: HS: severe, Gastroc: severe. Strength: Core: fair minus, Hip: 4/5 throughout, Knee: 4+/5, Ankle: 5/5 in all motions bilateral - Balance/Special Test Scores Lower Extremity Functional Score: 41 TUG Test Time Seconds: 15 - Goals Goal 1:: Patient will be I with HEP and progression Goal Time Frame: 4-6 Weeks Goal 2:: Patient will sit to stand without UE A Goal Time Frame: 4-6 Weeks Goal 3:: Patient will improve TUG test to less than 10 seconds Goal Time Frame: 4-6 Weeks - Rehabilitation Potential Physical Therapy Diagnosis: Patient presents with hypomobility- she decreased pain free ROM, LE and core strength/stabilization, flex, proprioception and muscular endurance leading to poor posture and increased pain with ADL's - Anticipated Interventions Thank you for the opportunity to evaluate your patient. For Medicare and Medicare HMO plans, please review the plan of care and approve it. It will need to be FAXED BACK to us at [phone] for Medicare purposes. For Medicare only, by signing this I certify the plan of care. Please let me know if there are questions or concerns regarding this plan of care. Physician Signature: Date:
--- NOTE | 2021-10-01 13:36 | HP.PTEVAL_ITS ---
Patient's Visit Information RUTH THOMSON is a 76 year old F referred to Physical Therapy by Dr. Raj Heath MD with a diagnosis of Right Knee Pain. Date of Evaluation: 10/01/21 Physical Therapist: Ofe Quezada DPT - Visit Plan Frequency: 2x /Week Duration: 4 Weeks Plan: Aquatic- Prehab for TKR - Subjective Patient reports that she needs a right knee replacement-January 20, [address] Heath- she plans to get through the next few months due to two kiddos to graduate in [place] and [place]. The plan is aquatic therapy to get her through until surgery. She compensates with her left LE. Pain is along the medial joint line. Worst: 8/10 Agg: sitting for long periods of time and getting up, scrubbed the floor. She is fully I with all ADL's. Best: 0/10 Eases: pain medication. Was given Meloxicam. Does radiate to the calf but not to the hip. Describes the pain as dull and achy. No N/T in the toes. Sleep: not disturbed. Takes some time for the pain the pain to diminish. Does not use ice or heat. No change in bowel or bladder. Recent x-rays. PMHx: no changes since Dec at hospital. - Objective Posture: FH, RS- can correct but does not maintain. Gait: antalgic- straight ca ne- decrease step length and jack. Valgus right>left Stairs: asc/desc recip with 2 HR-non recip- when asked to perform recip she reports significant pain HR: able with UE A Palpation: tender along medial joint line SLS: weight shift but unable to SLS ROM: 10-95 degrees Flex: HS: severe, Gastroc: severe. Strength: Core: fair minus, Hip: 4/5 throughout, Knee: 4+/5, Ankle: 5/5 in all motions bilateral - Balance/Special Test Scores Lower Extremity Functional Score: 41 TUG Test Time Seconds: 15 - Goals Goal 1:: Patient will be I with HEP and progression Goal Time Frame: 4-6 Weeks Goal 2:: Patient will sit to stand without UE A Goal Time Frame: 4-6 Weeks Goal 3:: Patient will improve TUG test to less than 10 seconds Goal Time Frame: 4-6 Weeks - Rehabilitation Potential Physical Therapy Diagnosis: Patient presents with hypomobility- she decreased pain free ROM, LE and core strength/stabilization, flex, proprioception and muscular endurance leading to poor posture and increased pain with ADL's - Anticipated Interventions Therapeutic Exercise to Include: Strength training, Endurance training, Balance training, Coordination, Agility training, Body mechanics, Postural training, Flexibilty training, Gait and locomotor training, Neuromotor development, In an aquatic setting, Dynamic Lumbar Stabilization, Scapular Strength/Stabilization For the Purpose of:: To improve muscle performance and motor function Thank you for the opportunity to evaluate your patient. For Medicare and Medicare HMO plans, please review the plan of care and approve it. It will need to be FAXED BACK to us at [phone] for Medicare purposes. For Medicare only, by signing this I certify the plan of care. Please let me know if there are questions or concerns regarding this plan of care. Physician Signature: Date:
--- NOTE | 2021-12-17 14:34 | HP.PTDCSUM ---
It has been my pleasure to treat RUTH THOMSON referred by Dr. Raj Heath MD, with the diagnosis of Right Knee Pain for a total of 9 visit(s). Discharge Date: Please see the following information for a summary of their discharge status. Subjective: Patient reports that she is still pretty sore. January 20 is surgery. She feels that the pool is not making any changes in the knee. RLE Pain Intensity (Out of 10): 7 % Improvement: 0 Objective/Function: No significant changes since IE: Surgery is January 20. Posture: FH, RS- can correct but does not maintain. Gait: antalgic- straight cane- decrease step length and jack. Valgus right>left Stairs: asc/desc recip with 2 HR-non recip- when asked to perform recip she reports significant pain HR: able with UE A Palpation: tender along medial joint line SLS: weight shift but unable to SLS ROM: 10-95 degrees Flex: HS: severe, Gastroc: severe. Strength: Core: fair minus, Hip: 4/5 throughout, Knee: 4+/5, Ankle: 5/5 in all motions bilateral Goal 1:: Patient will be I with HEP and progression Goal Progress: Goal Met Goal 2:: Patient will sit to stand without UE A Goal Progress: Not Progressing Goal 3:: Patient will improve TUG test to less than 10 seconds Goal Progress: Not Progressing Plan: Aquatic- Prehab for TKR If there are questions or concerns regarding this patient's physical therapy, please feel free to call me at [phone]. Thank you for the referral of this patient. Sincerely, Ofe Quezada, LEIDAT Balance/Gait/Functional tests - Balance/Special Test Scores Lower Extremity Functional Score: 35 TUG Test Time Seconds: 15 Tug Test: <20 sec.=mostly independent
== END 2021-11-02 19:00 | disposition home or self-care (01) ==
LOC: PT 11:00
PROVIDERS: Referring Provider Specialist; Visit Provider Specialist
DX: M17.11 Unilateral primary osteoarthritis, right knee (principal); E66.8 Other obesity; Z68.39 Body mass index [BMI] 39.0-39.9, adult
CPT/HCPCS: 97113; 97161; 97164

== ENCOUNTER → 2022-01-07 | Outpatient (CLI) | payer MEDICARE, BC, SELFPAY ==
--- NOTE | 2022-01-07 12:26 | CT_ITS ---
STUDY: CT SCAN LOWER EXTREMITY RIGHT REASON FOR EXAM: Female, 76 years old. PRE OP. [facility] protocol. RADIATION DOSAGE (If Supplied By Facility): CTDIvol = ( 28.59 ) mGy, DLP = ( 2330.06 ) mGycm. Individualized dose optimization techniques were used for this CT.? TECHNIQUE: Multiple axial tomographic images were obtained of the right hip joint, right knee joint and right ankle joint. Coronal and sagittal reconstruction was obtained as well. COMPARISON: None. FINDINGS: The patient is status post left total hip replacement. Moderate degree of joint space narrowing along the superior lateral compartment of the right hip joint. Small subchondral geode is seen along the lateral aspect of the right acetabulum. There is a marked degree of joint space narrowing involving the medial compartment of the knee joint with multiple subchondral geodes along the medial femoral condyle and medial tibial plateau. Degenerative spurring is seen along the medial aspect of the distal femoral condyle. Marked degree of joint space narrowing and osteoarthritis of the patellofemoral joint with anterior spur formation of the distal patella. Imaging of the ankle joint was obtained. No significant abnormality is seen. CT/Extremity Lower without Contra IMPRESSION: Moderate degree of joint space narrowing with degenerative spur formation and subchondral geodes of the medial compartment of the knee joint. Marked degree of joint space narrowing with degenerative spur formation of the patellofemoral joint. Electronically Signed: Anam Peña MD at 14:38 EDT ,
== END | disposition home or self-care (01) ==
LOC: CT 12:19
PROVIDERS: PCP Nurse Practitioner; Referring Provider Specialist; Visit Provider Specialist
DX: M21.161 Varus deformity, not elsewhere classified, right knee (principal)
CPT/HCPCS: 73700

== ENCOUNTER 2022-01-20 06:48 | Observation (INO) | payer MEDICARE, BC, SELFPAY ==
--- NOTE | 2021-12-25 11:22 | HP.PCM_ITS ---
History and Physical History and Physical? Patient Name: Lisa GrayB: 1945 From:? DESTINY DENG PA-C? DATE OF SURGERY:? 01/20/2022 SCHEDULED PROCEDURE: Robotic-assisted right total knee arthroplasty HISTORY OF PRESENT ILLNESS: Patient is a 76-year-old female with a chief complaint of right knee pain. Patient complains of pain with several year duration. The pain is 5 on a scale of 10, 7 with activity. The pain is increased with walking, standing, sitting. The patient reports start up pain. The pain is located over the medial joint kirsten e. The patient states that the pain does not awaken them at night. Activity modification include a reduced ability to perform normal daily activities without pain. Previous treatments include walking for exercise, Meloxicam with some relief, use of a cane for stability. The patient notes multiple falls.? ? 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 Respiratory: Denies asthma, cough, pneumonia, sleep apnea, shortness of breath, tuberculosis and wheezing. Gastrointestinal: Denies constipation, diarrhea, heartburn, nausea, rectal itching, bloody stools and vomiting. Genitourinary: . (F Genital Sx) Denies incontinence. Musculoskeletal: Reports gait disturbance, pain, trouble walking and weakness. Skin: Denies Raynaud's, history of shingles and tattoo. Neurological: Reports ambulatory dysfunction and dizziness but denies numbness/tingling and tremor. Psychiatric: Denies anxiety, depression, insomnia, mental illness and stress. Hematologic/Lymphatic: Reports past transfusion, but denies anemia and bleeding/bruising tendency. Reviewed and updated. PAST MEDICAL HISTORY: Advance Care Plan: No Advance Directives Effective Date: 08/10/2021 Past Medical History: Medical Problems: Cancer - (2020) BREAST Hormone Therapy, Active Treatment For Malignancy Accidents: Fracture - (1953) LT FX HIP? Surgical Hx: Hip Replacement - (1972) RT-Meaghan Lucia? RT Hip Revision - (2007) [facility] [place] Breast Cancer Removal - (2020) Anesthesia Complications: None Assistive Devices: Cane Reviewed and updated. SOCIAL HISTORY: Social History: Marital: .Occupation: Retired.Work Status: Retired.Hand Dominance: Right- Handed. Personal Habits:? Cigarette Use: Never.Smokeless Tobacco: Never Used Smokeless Tobacco.E-Cigarette Use: Never used.Alcohol: Occasionally.Drug Use: Denies Use.Enjoy Exercising: Exercises 1-3 X/Week. Reviewed and updated. VITALS: Ht: 66.5 Wt: 245lb Wt k.132 BMI: 38.9 BP: 132/92 Pulse: 83 Resp: 14 T: 97.1 T: 36.2C Pain Level: 7 O2SatR: 96 ALLERGIES: No Known Drug Allergy? MEDICATIONS: Meloxicam 7.5 mg 1 by mouth twice a day, Anastrozole 1 mg 1 by mouth every day, Zinc 30 mg daily, Vitamin D-3 125 mcg (5000 Ut) 1 by mouth every day, Advil 200 mg 4 tablets 1-2x daily as needed PRE-OP EXAM:? General appearance:NORMAL? ? ? Other: Eyes: Conjunctivae and lids: NORMAL? Pupils: ERR Ears, Nose, Mouth, and Throat: NORMAL? Other: Inspection of lips, teeth and gums: NORMAL? ?Other: Neck: Examination of neck: no masses noted. Respiratory: Assessment of respiratory effort: NORMAL? ?Other: ?Auscultation of lungs: clear to auscultation no wheezes, rhonchi or rales. Cardiovascular:? Auscultation of heart: regular rate and rhythm, no murmurs, gallops or rubs. Exam of carotid arteries: NORMAL? ?Other: Gastrointestinal:? Exam of abdomen: soft, nontender, nondistended bowel sounds present. Lymphatic:? Palpation of nodes in neck:? NORMAL? ? ?Other: ? Palpation of nodes in Axillae: NORMAL? ?Other: Neurological: see below Psychiatric:? Orientation to time, place and person: NORMAL? ? ?Other: ?Mood and affect: NORMAL? ?Other: PHYSICAL EXAMINATION: ? Exam: Const: Appears healthy.? No signs of apparent distress present.? Alert and oriented x 3.? Musculo: Antalgic gait? Knees: ?Insp/Palp: Left knee: full extension. Flexion 105 degrees, calf to thigh. Previous incision is clean, dry and intact. Right knee: Motion 12-95 degrees. Partially correctable varus alignment. Firm end point with varus and valgus stress testing.?? Integumentary: Skin is warm, dry and intact.? Neuro: Sensation to light touch is intact in the lower extremities deep peroneal, lower extremities dorsal cutaneous, lower extremities saphenous, lower extremities sural and lower extremities tibial nerve distribution.? ? IMAGING STUDIES: ?previous films were reviewed 4 views of the right knee with sunrise, lateral, and bilateral standing AP and tunnel views reviewed reveal varus alignment and medial joint space narrowing, subchondral sclerosis and osteophyte formation consistent with severe stage IV osteoarthritis with bony erosion of the lateral compartment IMPRESSION: 1.? Grade 4 osteoarthritis right knee 2.? Breast cancer?active treatment for malignancy PLAN: Patient denies history of DVT or PE, open wounds or sores over the body, no allergies to antibiotics and no current antibiotic use. No current dental issues Xarelto 10 mg once daily ?2 weeks followed by Aspirin 81 twice a day ?2weeks for DVT prophylaxis postoperatively--Active hormone therapy for malignancy At this time patient has consented to proceed with a robotic-assisted right total knee arthroplasty.? Dr. Heath did discuss and review with the patient all treatment options including surgical versus nonsurgical options.? Patient does wish to proceed with the above-stated procedure.? Potential risk, benefits, and complications of the procedure were discussed in detail including but not limited to , infection, nerve and blood vessel damage, persistent pain, numbness, tingling, paresthesias, blood clot, pulmonary embolism, and requirement for possible further surgery.? The patient expressed full understanding and has no further questions for the doctor.? Patient does agree to proceed with the above-stated procedure and has signed the surgery consent form. I have reviewed the [place] Automated Rx Reporting System (OARRS) report for this patient for refill pattern and other prescriber involvement as part of the appropriate surveillance for the provision of acute and chronic controlled medications.? The report was requested and reviewed on the date of this entry and was considered in the prescribing process. Discussed with the patient the risks associated with the COVID-19 virus including the risk of exposure while at the hospital.? The patient was reassured local hospitals have low infection rates and taken all necessary precautions to limit patient exposure to COVID-19.? Limiting the patient's time in the hospital may decrease their exposure to COVID-19.? The patient was notified that we will need to comply with any screening or testing the hospital wishes to perform and that surgery may be delayed for any positive test results. ___? I have re-examined the patient.? There are no clinical changes since date of exam. ___? See progress notes for changes. ___? Dictated on admission Date: ? ? ?Time: Signature:
--- NOTE | 2022-01-07 12:24 | RAD_ITS ---
STUDY: X-RAY CHEST REASON FOR EXAM: Female, 76 years old. PREOP TECHNIQUE: PA and lateral views of the chest. COMPARISON: None. FINDINGS: Surgical clips are seen in the right axillary region. Mild increased linear markings at the left lung base suggestive of linear atelectasis and/or scarring. There is no demonstrated pleural abnormality. Normal size heart. Normal mediastinum and payam. Normal visualized pulmonary arteries. There is atherosclerotic calcification of the aortic arch with tortuosity. There are diffuse degenerative changes of the visualized thoracic spine. Normal visualized ribs, clavicles, and shoulders. There is no demonstrated abnormality of the visualized soft tissue structures of the upper abdomen. RAD/Chest PA and Lateral IMPRESSION: Mild increased markings at the left lung base suggestive of linear atelectasis and/or scarring. Electronically Signed: Anam Peña MD at 15:10 EDT ,
--- NOTE | 2022-01-07 12:24 | EKG12_ITS ---
Test Reason : PRE-OP Blood Pressure : / mmHG Vent. Rate : 083 BPM Atrial Rate : 083 BPM P-R Int : 134 ms QRS Dur : 082 ms QT Int : 352 ms P-R-T Axes : -10 -01 041 degrees QTc Int : 413 ms Normal sinus rhythm Normal ECG Confirmed by LAURIE FUENTES, NIKOLE ([id number]), associate editor DANTE HUA ([id number]) on 01/08/2022 9:48:28 AM Referred By: Raj Heath Confirmed By:NIKOLE SULLIVAN MD
[2022-01-07 14:23] LABS: Partial Thromboplast Time 28.6 Seconds (24.1-36.2); Prothrombin Time (Protime)PT. 13.1 SECONDS (11.7-14.9)
[2022-01-07 14:38] LABS: Magnesium 2.3 mg/dL (1.6-2.6)
[2022-01-07 14:48] LABS: Hemoglobin A1c 5.8 % (3.8-5.6)
[2022-01-20] VITALS (15 sets, daily range): BP systolic 151–173; BP diastolic 61–88; PULSE 76–95; RESP 14–16; TEMP 36.2–37.1; O2SAT 93–100; BMI 38.0
--- NOTE | 2022-01-20 06:47 | PCM.OPRPT ---
Report of Operation Date of Procedure: 01/20/22 Pre-Operative Diagnosis: Right knee primary osteoarthritis Post-Operative Diagnosis: Right knee primary osteoarthritis Surgery/Procedure Performed:: Right minimally invasive robotic total knee replacement Description of Surgical Findings:: Stable knee with good patella tracking Surgeon: Raj Heath umbrella tipper: Sergei Truong Type of Anesthesia: Spinal Anesthesiologist: Nakul Guerra Special Medications: 2 g Ancef, 1 g TXA at incision, 1 g TXA closure, 10 mg Decadron, joint cocktail (5 mg Duramorph, 30 mL of 0.5% Ropivicaine, 1000 units of epinephrine, 30 mg of Toradol) Specimen's removed: Bony cuts Estimated Blood Loss (mL): 75 Fluids Replaced: 1200 mL crystalloid Description of Procedure: Implants used: 1. [place] size 5 triathlon cruciate retaining distal femoral press-fit component 2. [place] size 5 press-fit tritanium tibial baseplate 3. Mary X3 11 mm CS polyethylene 4. [place] X3 32 mm asymmetric patella Brief history operative indications: 77-year-old female with history of right knee osteoarthritis with radiographic findings with loss of joint space, osteophyte formation and subchondral sclerosis. Failed conservative measures as mentioned in the H&P. Discussion of total knee arthroplasty as well as risk and benefits were discussed the patient including but not limited to blood loss, DVTs, PEs, neurovascular damage, general risk of anesthesia including loss of life, and stiffness or instability were discussed with patient. Patient demonstrated understanding and was able to sign informed consent. Procedure: On the date of procedure patient's right lower extremity was marked in the preoperative area. The patient was then taken back to the operating room where the patient was placed on the table in the supine position. All bony prominences were identified a well-padded. Anesthesia assumed control of the C-spine and airway and remained controlled throughout the remainder of the procedure. A tourniquet was placed on the right upper thigh and the leg was prepped in a sterile fashion. The surgeon then scrubbed at this time .Upon reentering the room right lower extremity was draped in a standard orthopedic fashion. A timeout was then called and everyone agreed upon the side, the site, the procedure to be performed, patient's identity and antibiotics given. Esmarch bandage was used to exsanguinate the extremity and the tourniquet was placed up to 250 mmHg with the knee in flexion. A midline skin incision was made and sharp dissection was taken down through skin subcutaneous tissue and fat. The standard medial parapatellar incision was made and the patella was subluxed laterally. An Appropriate deep MCL release was done and the fat pad was resected. Our attention was then directed to the patella. The patella was everted and a flat resection was made. The knee was then flexed up in 2 femoral pins were placed inside the incision and 2 tibial pins were placed outside the incision in the medial tibia bicortically. Once this was completed the 2 checkpoints in the femur and tibia were placed. Knee was then flexed up and the bony landmarks were registered. Once this was completed knee was taken through range of motion and manually stressed allowing us to a plan for an appropriate tibial cut. The robotic arm was brought into the field sterilely and checkpoint and saw were registered. Based on the patient's deformity the tibial cut was made neutral to the tibial axis. At this time the tensioner was then placed in the joint and ligament tension was checked at 90 degrees and full extension. Based on the patient's ligamentous tension appropriate adjustments were made to the operative plan and ligament releases were done. Once we were happy with our operative plan with balanced flexion and extension gaps our attention was directed to the femur. The robot was brought into the field sterilely and registered. Posterior condylar cuts, anterior chamfer cuts and anterior cuts were appropriately made for a size 5 femur. When these were completed the saws were switched out in the distal femoral and posterior chamfer cuts were made. Protecting the soft tissue throughout this time. A size 5 tibial base plate was selected. the knee was flexed to 90 degrees and the soft tissues and posterior osteophytes were removed from the joint. 40 cc of the periarticular injection was injected into the posterior medial corner of the joint. The appropriate trials were then placed on the femur and tibia. A trial polyethylene was trialed to ensure proper balancing and stability of the knee. The appropriate tibial internal rotation was then marked with a bovie. Our attention was then directed to the patella. The lug holes were drilled and the patella trial was placed. Patellar tracking was checked and deemed appropriate. Once we were happy lug holes were drilled for the femur and trial components were removed. the tibia was subluxed and pinned into place and the keel was punched and drilled appropriately. Final components were verified and opened, and cement was mixed in a vacuum. [place] Simplex cement was used. The wound was copiously irrigated with normal saline. When the cement was ready the components were cemented into place starting with the tibia, femur and finally cementing the patella. The trial poly component was placed and the knee was placed in full extension. All excess cement was removed in the process. Once the cement had cured the tracking, alignment and balance were verified and a size 11 mm CS polyethylene component was placed. Once the final components were placed a 3-minute dilute Betadine lavage was performed followed by an Irrisept lavage was performed and the wound was copiously irrigated with normal saline solution and the periarticular injection was given. The wound was closed in a layer crump fashion using #1 vicryl interrupted sutures for the arthrotomy, 2-0 interrupted Vicryl suture for the subcuticular layer and jory for final skin closure. A sterile compressive dressing was then placed. The patient was then awakened from anesthesia, transferred to the rsaint jacob and transferred to the PACU for recovery. Post op plan DVT ppx: Xarelto for DVT prophylaxis patient takes anastrozole for history of breast cancer, thigh high compression stockings Follow up: in office in 2 weeks for wound check PT: to start POD #0 at hospital, outpatient PT should be arranged. My physician nurse practitioner physicians assistant was a vital part of this case. He was important in appropriate retraction during the case, and protection of soft tissues during bony cuts. His intimate knowledge of the case and my steps aided in safe and expedient completion of the procedure as well as appropriate position of the leg during the case. He was also vital in assisting with closure under my direct supervision. Due to the complexity of this case robotic arm was used to assist in the surgery to improve accuracy and clinical outcomes. Complications No intraoperative complications Admit VTE Documentation VTE Present on Admission: No VTE Mechan Device Prophylaxis: SCD's and Thigh High SHELDON Hose VTE Pharm Prophylaxis ordered?: Yes
[2022-01-20] MEDS: Celecoxib 200 MG Capsule 400 MG PO (07:04)
[2022-01-20] MEDS: Gabapentin 600 MG Tablet PO (07:04)
[2022-01-20] MEDS: Acetaminophen 500 MG Tablet 1000 MG PO ×3 (07:04→21:06)
[2022-01-20] MEDS: Lactated Ringers 1,000 ML 999 ML IV (07:05)
[2022-01-20] MEDS: Cefazolin 2 GM in 0.9% Normal Saline 100 ML IV (08:32)
[2022-01-20] MEDS: TXA 1000mg in NS100 100ml (IVPB at Closure) 660 MG IV (08:40)
--- NOTE | 2022-01-20 08:45 | KNEE_PTH ---
PATIENT: RUTH THOMSON LOC: MS3 U#:[id number] AGE/SX: 77/F ROOM: TN315 RE01/20/[address]: Dr. Raj Heath MD : 1945 BED: 1 DIS: 01/21/2022 SPEC #: [id number] RECD: 01/20/22 10:45 STATUS: ANGELIKA FRANKLINAsh #: [id number] JT: 01/20/22 08:[address]: Raj Heath DEPT: SURGICAL PATHOLOGY RECD BY: Estelita Nicholas ENTERED: 01/20/22 11:00 SP TYPE: TOTAL KNEE OTHR DR: Leilani Coronado, RESIDENTIAL SALES REPRESENTATIVE-C Tissues: Knee, NOS Procedures: Decalcification bone/plaque Surgery Specimen Level IV HEADER OPERATION: ERAS, total knee replacement robotic arm assist PRE-OP DIAGNOSIS: Right knee primary osteoarthritis TISSUE SUBMITTED: Right knee bone and tissue MICROSCOPIC DIAGNOSIS Bone and tissue of right knee, total knee resection: Severe degenerative joint disease. Mild synovial hyperplasia. AM:navid 01/25/2022 MICROSCOPIC DESCRIPTION Slides are reviewed. GROSS DESCRIPTION Received is one container designated bone and soft tissue right knee. The specimen consists of multiple fragments of castillo-yellow bone measuring in aggregate 14 x 14 x 2 cm. Also in the specimen container are multiple fragments of yellow-white soft tissue measuring in aggregate 2.5 x 2.5 x 1 cm. A number of bony fragments contain articular surfaces consistent with tibial plateau and femoral condyle and displaying prominent osteophyte formation, eburnation, and bone erosion. [employer] Head sections are submitted in two cassettes as follows: 1 - soft tissue, 2 - bone after decalcification. / AM:navid 01/20/2022 TC:5 [facility]: [id number], [id number]
[2022-01-20] MEDS: dexAMETHasone 10 MG/ML Vial IV (08:59)
[2022-01-20] MEDS: Lactated Ringers 1,000 ML 75 ML IV (09:31)
[2022-01-20 10:06] LABS: Bedside Glucose 100 mg/dL (74-106)
[2022-01-20] MEDS: TXA 1000mg in NS100 100ml (IVPB at Incision) 660 MG IV (10:11)
--- NOTE | 2022-01-20 11:10 | RAD_ITS ---
STUDY: X-RAY - RIGHT KNEE REASON FOR EXAM: Female, 77 years old. Post op -- AP and Lateral xray of operative knee in PACU TECHNIQUE: 2 view(s) of the knee. COMPARISON: None. FINDINGS: Normal visualized distal femur. Normal visualized proximal tibia and fibula. Normal proximal tibiofibular articulation. The patient is status post total knee replacement. There is good alignment. Postoperative soft tissue changes. RAD/Knee 1 or 2 Views IMPRESSION: Status post total knee replacement. There is good alignment. Postoperative soft tissue changes. Electronically Signed: Anam Peña MD at 11:59 EDT ,
[2022-01-20] MEDS: Lactated Ringers 1,000 ML 125 ML IV (12:01)
--- NOTE | 2022-01-20 14:03 | PCM.PN.HOSP ---
Subjective Subjective Mrs. Romero is a 76-year-old white female who was admitted to hospital on 01/20/2022 for an elected right total knee arthroplasty performed by Dr. Heath. The patient was having pain in her right knee for several years prior to surgery. She had increased pain with walking, standing, and sitting and this was located predominantly at the medial joint line. She had to modify her activities and she has had reduced ability to perform ADLs and IADLs felt pain. She has had previous treatments including physical therapy, meloxicam and she has had to start using a cane for stability. The patient has suffered from multiple Falls related to her pain. We have been consulted for postoperative medical management. Patient was evaluated and currently is complaining of very little pain status post block. She has an appetite and is feeling well. She states that tentative plan is for discharge home tomorrow. Objective Data Objective Data Vital Signs: Vital Signs Temp Pulse Resp BP Pulse Ox O2 Del Method O2 Flow Rate 98.2 F 92 16 157/64 H 97 Room Air 4 01/20/22 13:00 01/20/22 13:00 01/20/22 13:00 01/20/22 13:00 01/20/22 13:00 01/20/22 13:00 01/20/22 12:30 Oxygen Flow Rate (L/min) 4 Oxygen Delivery Method Room Air Weight: 110 kg Body Mass Index (BMI) 38.0 Intake & Output: Intake and Output for Last 24 Hours 01/18/22 01/19/22 01/20/22 23:59 23:59 23:59 Intake Total 2432 / 2432 Balance 2432 / 2432 Lab / Micro Data Labs: Laboratory Results - last 24 hr 01/20/22 06:54: POC Glucose 100 Micro: Microbiology 01/07/22 13:13 Swab (Method) Nasal Screen MRSA/MSSA - Final Radiography Diagnostic Testing: Radiology Impression Knee X-Ray 01/20/22 11:10 IMPRESSION: Status post total knee replacement. There is good alignment. Postoperative soft tissue changes. Electronically Signed: Anam Peña MD at 11:59 EDT , Physical Exam Const alert, oriented x3 and no apparent distress Constitutional Narrative: Obese, older white female sitting up in bed on her iPad, appears comfortable and nontoxic HEENT head/scalp atraumatic, moist oral mucous membranes and oropharynx normal HEENT Narrative: Tongue is orange from Jell-O, Mallampati is 2-3, no thrush Resp normal respiratory effort, no retractions, no use of accessory muscles and clear to auscultation bilaterally Auscultation: Negative for crackles, rales, rhonchi or wheezes Cardio regular rate, regular rhythm, S1 normal heart sound, S2 normal heart sound, no murmurs, no rub, no gallops, no clicks and no JVD GI normal to inspection, nondistended, normoactive bowel sounds, soft to palpation, non-tender and non-distended Extremity no clubbing, cyanosis or edema Extremity Narrative: Postoperative knee with SHELDON hose in place and polar ice contralateral leg has SHELDON hose in place, 2+ pedal pulses Neuro oriented x3, CN's II-XII intact bilaterally and no focal motor deficits Neuro Narrative: Decreased movement on operative leg secondary to block Speech: speech normal Psych affect normal Assessment & Plan Assessment/Plan (1) Arthritis of right knee: (2) S/P total knee arthroplasty: PLAN: Plan Osteoarthritis of the right knee -Postop day 0 robotic assisted right total knee arthroplasty -Admit per primary service -PT/OT consult -Recommend bowel regimen History of breast cancer -Diagnosed on 02/19/2021 via core biopsy -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
--- NOTE | 2022-01-20 14:59 | PN.HOSP_ITS ---
Subjective Subjective Patient seen and examined. Underwent right total knee replacement. Pain currently controlled. Hospitalist services consulted for medical management. Patient reports a history of breast cancer. Denies other medical history. States her blood pressure occasionally fluctuates. Denies other symptoms or complaints. Objective Data Objective Data Vital Signs: Vital Signs Temp Pulse Resp BP Pulse Ox O2 Del Method O2 Flow Rate 98.2 F 92 16 157/64 H 97 Room Air 4 01/20/22 13:00 01/20/22 13:00 01/20/22 13:00 01/20/22 13:00 01/20/22 13:00 01/20/22 13:00 01/20/22 12:30 Oxygen Flow Rate (L/min) 4 Oxygen Delivery Method Room Air Weight: 242 lb 8 oz Body Mass Index (BMI) 38.0 Intake & Output: Intake and Output for Last 24 Hours 01/18/22 01/19/22 01/20/22 23:59 23:59 23:59 Intake Total 2432 / 2432 Balance 2432 / 2432 Lab / Micro Data Labs: Laboratory Results - last 24 hr 01/20/22 06:54: POC Glucose 100 Micro: Microbiology 01/07/22 13:13 Swab (Method) Nasal Screen MRSA/MSSA - Final Radiography Diagnostic Testing: Radiology Impression Knee X-Ray 01/20/22 11:10 IMPRESSION: Status post total knee replacement. There is good alignment. Postoperative soft tissue changes. Electronically Signed: Anam Peña MD at 11:59 EDT , Physical Exam Const alert and oriented x3 Orientation / Consciousness: awake, oriented to person, oriented to place and oriented to time Nutritional Appearance: morbidly obese HEENT normocephalic and moist oral mucous membranes Eyes PERRL, EOMs intact bilaterally and conjunctivae normal Neck no lymphadenopathy Resp normal respiratory effort and clear to auscultation bilaterally Cardio regular rate, regular rhythm and no murmurs Peripheral Pulses: pulses 2+ throughout GI normal to inspection, nondistended, normoactive bowel sounds, non-tender and non-distended Extremity normal to inspection Skin no rashes or lesions noted Skin Narrative: Postoperative dressing intact Lesions: no lesions Rashes: no rashes Trauma: no lacerations or abrasions Neuro CN's II-XII intact bilaterally, no focal motor deficits, no sensory deficits noted and deep tendon reflexes 2+ bilaterally Psych mental status grossly normal and affect normal Assessment & Plan Assessment/Plan (1) S/P total knee arthroplasty: PLAN: Plan 1. Right knee primary osteoarthritis status post right total knee replacement- management per orthopedic medicine. PT/OT. As needed pain regimen. 2. History of breast cancer-on anastrozole. 3. Obesity-encouraged diet and lifestyle modifications. DVT prophylaxis-SCDs, pharmacologic prophylaxis per surgery This patient was seen by LAURIE Villegas under the supervision of Dr. Finney .
[2022-01-20] MEDS: Senna/Docusate Sodium 1 Tablet 2 TABLET PO ×2 (15:06→21:07)
[2022-01-20] MEDS: Anastrozole 1 MG TABLET PO (15:06)
[2022-01-20] MEDS: Famotidine 20 MG Tablet PO (15:06)
[2022-01-20] MEDS: Cefazolin 1 GM/50 ML BAG IV ×2 (16:40→23:32)
[2022-01-20] MEDS: hydrALAZINE 20 MG/ML Vial 5 MG IV (23:41)
[2022-01-21 00:15] VITALS: BP 161/85
[2022-01-21 02:28] VITALS: BP 157/74; PULSE 82; RESP 16; TEMP 36.6; O2SAT 97
[2022-01-21] MEDS: Ketorolac 15 MG/ML Vial IV ×2 (03:17→13:00)
[2022-01-21 06:28] VITALS: BP 156/73; PULSE 82; RESP 16; TEMP 36.4; O2SAT 97
[2022-01-21 06:35] LABS: Hemoglobin 12.1 g/dL (12.0-15.0); Mean Corpuscular Hgb 26.5 pg (27.0-32.0); Mean Corpuscular Volume 85.3 fL (81-99); Mean Platelet Vol. 10.5 fl (6.2-12.0); Platelet Count 199 K/mm3 (150-450); RBC Distribution Width CV 14.6 % (11.6-14.6); RBC Distribution Width SD 44.8 fl (35.1-43.9); Red Blood Count 4.57 M/mm3 (4.2-5.4); White Blood Count 12.9 K/mm3 (4.4-11.0)
[2022-01-21] MEDS: Acetaminophen 500 MG Tablet 1000 MG PO ×2 (06:36→12:59)
[2022-01-21] MEDS: Rivaroxaban 10 MG Tablet PO (06:36)
[2022-01-21 07:15] LABS: Anion Gap 5 (5-15); BUN 11 mg/dL (7-18); BUN/Creat Ratio 19.1 RATIO (10-20); Calcium,Total 8.6 mg/dL (8.5-10.1); Chloride 108 mmol/L (98-107); Creatinine, Serum 0.58 mg/dL (0.55-1.02); EST Glomerular Filtration Rate 108 mL/min (>60); Est Glom Filt Rate - Afr Amer 130 mL/min (>60); Estimated Creatinine Clearance 45.09 ml/min; Glucose 122 mg/dL (74-106); Potassium 4.1 mmol/L (3.5-5.1); Sodium Level 140 mmol/L (136-145)
[2022-01-21 08:00] VITALS: BP 133/65; PULSE 84; RESP 15; TEMP 36.4; O2SAT 100
[2022-01-21] MEDS: Senna/Docusate Sodium 1 Tablet 2 TABLET PO (08:20)
[2022-01-21] MEDS: Cholecalciferol (VIT D3) 25 MCG TABLET (1,000 UNITS) PO (08:21)
[2022-01-21] MEDS: Ascorbic Acid 500 MG Tablet PO (08:21)
[2022-01-21] MEDS: Famotidine 20 MG Tablet PO (08:21)
[2022-01-21] MEDS: Anastrozole 1 MG TABLET PO (08:21)
--- NOTE | 2022-01-21 09:44 | PN.ORTHO_ITS ---
Subjective Subjective The patient was sitting in bedside chair upon examination finishing breakfast. Patient denies any chest pain, shortness of breath, dizziness, lightheadedness, nausea or vomiting, or calf pain. Pain is controlled on medications. No adverse overnight events. Patient overall is doing very well. However she does have complaints of the SHELDON hose not fitting correctly due to the size of her leg. They are rolling down onto the incision area. Objective Data Objective Data Vital Signs: Vital Signs Temp Pulse Resp BP Pulse Ox O2 Del Method O2 Flow Rate 97.5 F L 84 15 133/65 H 100 Room Air 4 01/21/22 08:00 01/21/22 08:00 01/21/22 08:00 01/21/22 08:00 01/21/22 08:00 01/21/22 08:00 01/20/22 12:30 Oxygen Flow Rate (L/min) 4 Oxygen Delivery Method Room Air Weight: 109.996 kg Body Mass Index (BMI) 38.0 Intake & Output: Intake and Output for Last 24 Hours 01/19/22 01/20/22 01/21/22 23:59 23:59 23:59 Intake Total 3629.92 / 3629.92 350 / 350 Output Total 200 / 200 Balance 3429.92 / 3429.92 350 / 350 Lab / Micro Data Result Diagrams: 01/21/22 05:45 01/21/22 05:45 Labs: Laboratory Results - last 24 hr 01/20/22 06:54: POC Glucose 100 01/21/22 05:45: WBC 12.9 H, RBC 4.57, Hgb 12.1, Hct 39.0, MCV 85.3, MCH 26.5 L, MCHC 31.0 L, RDW Std Deviation 44.8 H, RDW Coeff of Nathalia 14.6, Plt Count 199, MPV 10.5 01/21/22 05:45: Sodium 140, Potassium 4.1, Chloride 108 H, Carbon Dioxide 27.0, Anion Gap 5, BUN 11, Creatinine 0.58, Estim Creat Clear Calc 45.09, Est GFR (MDRD) Af Amer 130, Est GFR (MDRD) Non-Af 108, BUN/Creatinine Ratio 19.1, Glucose 122 H, Calcium 8.6 Micro: Microbiology 01/07/22 13:13 Swab (Method) Nasal Screen MRSA/MSSA - Final Radiography Diagnostic Testing: Radiology Impression Knee X-Ray 01/20/22 11:10 IMPRESSION: Status post total knee replacement. There is good alignment. Postoperative soft tissue changes. Electronically Signed: Anam Peña MD at 11:59 EDT , Physical Exam Narrative Vital signs stable and afebrile. SHELDON hose and SCDs are in place bilaterally. However the SHELDON hose are not fitting appropriately due to the patient's size of her leg. They are rolling down putting pressure over the incision area. I am going to discontinue the SHELDON hose at this time and will utilize Marcial wraps for the knee. This was discussed with the nurse and they will apply. Patient is able to plantarflex and dorsiflex actively. Sensation is intact to light touch to saphenous, sural, superficial and deep peroneal, and tibial distribution. Dressing is clean dry and intact. Negative Homans bilaterally, negative signs and symptoms of DVT. Const alert, oriented x3 and no apparent distress Assessment & Plan Assessment/Plan (1) Status post total right knee replacement: PLAN: 1. S/P right total knee arthroplasty POD #1 2. Continue Pain Medications: Tylenol and oxycodone 3. DVT Prophylaxis: Xarelto for 2 weeks postoperatively due to patient's history of breast cancer and currently taking anastrozole. Plan will be at 2- week postoperative visit switching over to aspirin 81 mg twice daily for DVT prophylaxis for an additional 2 weeks. This was discussed in detail with the patient. 4. PT/OT: Weightbearing as tolerated with walker 5. H & H: 12.1/39.0, asymptomatic. Postoperative anemia secondary to acute blood loss from surgery without any intra operative complications. 6. Reactive leukocytosis: Currently 12.9, afebrile. Patient did receive Decadron intraoperatively 7. Encouraged Incentive Spirometry 8. Disposition: Overall patient is doing very well. She has been up walking doing well. Plan will be for probable discharge home today as long as patient tolerates therapy, pain is well controlled, and cleared by medicine. We will discontinue the use of the SHELDON hose and switch over to Marcial wrap for the right lower extremity. I also discussed with her that I would like her to make sure she is elevating the leg multiple times daily above the heart. Prescriptions will be E scribed to [facility]. Patient will follow-up per postop instructions. She does have outpatient physical therapy established. Upon discharge she will contact her office with any concerns or questions. I have reviewed the [place] Automated Rx Reporting System (OARRS) report for this patient for refill pattern and other prescriber involvement as part of the [place] ropriate surveillance for the provision of acute and chronic controlled medications. The report was requested and reviewed on the date of this entry and was considered in the prescribing process. This dictation was created using voice recognition software. Phonetic and/or grammatical errors may exist.
--- NOTE | 2022-01-21 09:49 | DCINST_ITS ---
Discharge Instructions Diet Discharge Diet: No restrictions Activity Discharge Activity: May Not Drive (No driving for 6 weeks postoperatively. Must also be off all narcotics and able to walk 100 feet without the use of cane or walker.) May shower in (days): 1 (Please turn dressing away from water. Okay to get wet as long as dressing is intact to skin.) Ice area for (Minutes): 20 (Every 1-2 hours while awake[address] Please place barrier between the skin and ice pack.) Weight Bearing Status: Weight bearing as tolerated (With walker) Keep extremity elevated above heart level: Operative Extremity Dressing / Incision Call your doctor if your incision/area has: Continuous Slow Oozing, Sudden Increased Bleeding, Increased Pain/ Swelling, Increased Redness and Foul Smelling Discharge Call your doctor if you observe: Fever of 101 or Higher, Coldness, Increased Pain, Numbness or Tingling, Change in Color, Shortness of breath, Chest pain, Calf discomfort and Uncontrolled pain Remove Dressing in: 4 days (Okay to remove dressing on January 25, 2022) Additional Dressing/Incision Instructions:: Follow [facility] Post-op Instructions. Once postoperative dressing has been removed only use gentle soap and water over the incision. Do not use any ointments, Neosporin, salves, alcohol pads over the incision for 6 weeks postoperatively. Do not submerge underwater for 6 weeks postoperatively. Continue with Marcial wrap for 2 weeks postoperatively. May remove at nighttime but needs to be placed back on the leg during the day. Also recommend elevation above the heart for the operative extremity 3 times daily for swelling control. Do NOT use alcohol with narcotic pain medication. Do NOT make important decisions while taking narcotic medication. If you have problems with taking your medication (rash, itching, nausea, etc.) call the office at once. Follow Up Care Test Results: Test results from this visit will be discussed in further detail at your follow- up appointment, if applicable. Discharge Plan Admission Admit Date/Time: 01/20/22 06:48 Attending Provider: Raj Heath Primary Care Provider: Leilani Tomlinson NP Consulting Providers: Sara Murphy Discharge Orders/Prescriptions Prescriptions: New acetaminophen 500 mg Tablet 1,000 mg PO Q8 Qty: 100 0RF Rx Instructions: Do not take more than 3000 mg Tylenol in a 24-hour period. oxycodone 5 mg Tablet 5 - 10 mg PO Q4H PRN PRN (Reason: Pain Score 4-10) 5 Days Qty: 42 0RF Xarelto 10 mg Tablet 10 mg PO DAILY@0600 14 Days Qty: 14 0RF Rx Instructions: Take for 2 weeks postoperatively for DVT prophylaxis sennosides-docusate sodium [Stool Softener-Stimulant Laxat] 8.6-50 mg Tablet 2 tab PO BID 10 Days Qty: 40 0RF Rx Instructions: Take until first bowel movement, then as needed Continued zinc 50 mg tablet 50 mg PO DAILY cholecalciferol (vitamin D3) 25 mcg (1,000 unit) capsule 25 mcg PO DAILY ascorbic acid (vitamin C) 500 mg capsule 500 mg PO DAILY anastrozole 1 mg tablet 1 mg PO DAILY Discontinued ibuprofen [Advil] 200 mg tablet 200 mg PO Q6H PRN (Reason: Pain) Referrals / Follow Up: Leilani Tomlinson WALL COVERING INSTALLER, WALL COVERING INSTALLER-C [Primary Care Provider] - Sergei Truong PA-C [PHYSICIAN CHEMICAL LAB TECHNICIAN] - 02/04/22 3:30 pm Physical,Therapy [Other] - 01/25/22 3:30 am (With Mirian) Disposition Disposition (needs filled in before D/C Order can be placed): Home, Self Care
--- NOTE | 2022-01-21 09:57 | PN.HOSP_ITS ---
Subjective Subjective Patient seen and examined. She feels well and has no complaints. Pain is well controlled. REview of systems is otherwise neagtive. Objective Data Objective Data Vital Signs: Vital Signs Temp Pulse Resp BP Pulse Ox O2 Del Method O2 Flow Rate 97.5 F L 84 15 133/65 H 100 Room Air 4 01/21/22 08:00 01/21/22 08:00 01/21/22 08:00 01/21/22 08:00 01/21/22 08:00 01/21/22 08:00 01/20/22 12:30 Oxygen Flow Rate (L/min) 4 Oxygen Delivery Method Room Air Weight: 242 lb 8 oz Body Mass Index (BMI) 38.0 Intake & Output: Intake and Output for Last 24 Hours 01/19/22 01/20/22 01/21/22 23:59 23:59 23:59 Intake Total 3629.92 / 3629.92 350 / 350 Output Total 200 / 200 Balance 3429.92 / 3429.92 350 / 350 Lab / Micro Data Result Diagrams: 01/21/22 05:45 01/21/22 05:45 Labs: Laboratory Results - last 24 hr 01/20/22 06:54: POC Glucose 100 01/21/22 05:45: WBC 12.9 H, RBC 4.57, Hgb 12.1, Hct 39.0, MCV 85.3, MCH 26.5 L, MCHC 31.0 L, RDW Std Deviation 44.8 H, RDW Coeff of Nathalia 14.6, Plt Count 199, MPV 10.5 01/21/22 05:45: Sodium 140, Potassium 4.1, Chloride 108 H, Carbon Dioxide 27.0, Anion Gap 5, BUN 11, Creatinine 0.58, Estim Creat Clear Calc 45.09, Est GFR (MDRD) Af Amer 130, Est GFR (MDRD) Non-Af 108, BUN/Creatinine Ratio 19.1, Glucose 122 H, Calcium 8.6 Micro: Microbiology 01/07/22 13:13 Swab (Method) Nasal Screen MRSA/MSSA - Final Radiography Diagnostic Testing: Radiology Impression Knee X-Ray 01/20/22 11:10 IMPRESSION: Status post total knee replacement. There is good alignment. Postoperative soft tissue changes. Electronically Signed: Anam Peña MD at 11:59 EDT , Physical Exam Const alert, oriented x3 and no apparent distress HEENT head/scalp atraumatic, moist oral mucous membranes and oropharynx normal Head and Scalp: normocephalic Mouth: oral and palatal mucosa normal Eyes PERRL, EOMs intact bilaterally and conjunctivae normal Neck no lymphadenopathy, supple and no JVD Resp normal respiratory effort, no retractions, no use of accessory muscles and clear to auscultation bilaterally Cardio regular rate, regular rhythm, S1 normal heart sound, S2 normal heart sound and no murmurs GI normal to inspection, nondistended, normoactive bowel sounds, soft to palpation, non-tender and non-distended Extremity Extremity Narrative: right knee wrapped in bandage. Neuro oriented x3, CN's II-XII intact bilaterally, moves all extremities and no focal motor deficits Sensorium / Orientation: awake and alert Motor Exam: strength 5/5 throughout Psych affect normal Assessment & Plan Assessment/Plan (1) Status post total right knee replacement: PLAN: Plan #Right knee osteoarthritis s/p right knee replacement * today is POD 1. * pain is well controlled * PT/OT on board * pain management as per primary team * incentive spirometry * #History of right breast cancer s/p right breast lumpectomy * on anastrozole * #DVT prophylaxis; as per primary team orthopedics. On xarelto Disposition: stable for discharge home from hospitalist standpoint Charges/Coding Visit Charges Inpatient E&M: 44702 Subs Hosp L2
--- NOTE | 2022-01-21 10:40 | CASEMGMT ---
SYDNEE SCHNEIDER Face to Face with patient for initial transition planning/care coordination assessment. RN CM introduced self and role at [facility]. Patient lying in bed, alert and oriented. Patient willing to participate in assessment and is able to answer all questions appropriately. Care providers, pharmacy, and demographics verified. Patient wishes to discharge home and is setup with [facility] for outpatient therapy. Patient states she has no further needs or concerns at this time. CM to follow for discharge planning needs that may arise. PCP: Davi, APPLICATION LEAD Specialists: nilda Heath; Boaz, oncologist Preferred Pharmacy: [facility] Insurance: [employer] MCCLURE Prescription Benefit: yes Living Will/HPOA: yes, Nick Chow LNOK: Living Arrangements: Patient lives with in a single story home with 2 steps and railing to enter the home. Patient states she was independent prior to surgery Transportation: self/ DME/HHC: Patient has shower chair, raised toilet, cane, and walker at home. Patient is setup with [facility] for outpatient therapy starting Tuesday. Disposition Plan: Patient to discharge home with outpatient therapy, family support, and follow-up plans in place. Imani HAIRSTON, RN, CM
--- NOTE | 2022-01-21 11:05 | CASEMGMT ---
SYDNEE CM in to complete LACY form with patient. RN WYATT explained LACY form to patient, patient voiced understanding. Patient signed LACY form and filed in chart. Patient provided with copy of signed LACY form. Patient had no further questions or concerns at this time.
[2022-01-21] MEDS: oxyCODONE 5 MG Tablet PO (13:26)
== END 2022-01-21 13:58 | disposition home or self-care (01) ==
LOC: MS3 11:28
PROVIDERS: Anesthesiology; Admitting Provider Specialist; PCP Nurse Practitioner; Referring Provider Specialist; Visit Provider Specialist
PROC: 0SRC0JZ Replacement of Right Knee Joint with Synthetic Substitute, Open Approach (ICD-10-PCS; CPT 27447; principal; 2022-01-20 08:15)
DX: M17.11 Unilateral primary osteoarthritis, right knee (principal); C50.911 Malignant neoplasm of unspecified site of right female breast; Z79.811 Long term (current) use of aromatase inhibitors; E66.9 Obesity, unspecified; Z68.38 Body mass index [BMI] 38.0-38.9, adult; E55.9 Vitamin D deficiency, unspecified; Z79.899 Other long term (current) drug therapy; K21.9 Gastro-esophageal reflux disease without esophagitis; Z86.2 Personal history of diseases of the blood and blood-forming organs and certain disorders involving the immune mechanism
CPT/HCPCS: 27447; S2900; 01402; 64447; 36415; 71046; 73560; 80048; 82962; 83036; 83735; 85027; 85610; 85730; 87081; 88305; 88311; 93005; 96361; 96365; 96366; 96375; 96376; 97110; 97116; 97162; 97166; 97530; 99218; 99251; C1776; J7120; G0378; G0463; J3475

== ENCOUNTER → 2022-02-22 | Outpatient (CLI) | payer MEDICARE, BC, SELFPAY ==
--- NOTE | 2022-02-22 14:26 | BI_ITS ---
MAMMOGRAPHY - BILATERAL DIAGNOSTIC REASON FOR EXAM: Female, 77 years old. Prior right lumpectomy with radiation treatment. PERTINENT HISTORY: Personal history of breast cancer. Prior right lumpectomy. TECHNIQUE: Digital bilateral breast abbie (3D mammographic acquisition) in the CC and MLO projections. 2-D mediolateral oblique (MLO) and craniocaudad (CC) views of both breasts were obtained. CAD: Full Field Digital Mammography with Computer Added Detection was performed. COMPARISON: Comparison is made with prior study dated 02/13/2021. FINDINGS: Breast Composition: There are scattered areas of fibroglandular density. Since prior study, there has been resection of the nodular density in the deep slightly inferior central portion of the right breast. The previously seen large complex air fluid level density in the upper lateral aspect of the right breast has almost completely cleared. There is a residual 2.7 cm x 1.9 cm area of architectural distortion with overlying skin thickening and dimpling of the overlying skin. Follow-up with ultrasound is recommended for further evaluation. No other significant abnormalities are identified. BI/DIAG MAMM W/CAD, BILAT IMPRESSION: Status post resection of a nodular density in the deep slightly inferior central portion of the right breast with improvement in the previously seen complex cystic solid mass in the upper outer quadrant of the right breast. Residual scarring is seen at that site with overlying skin thickening and skin retraction. Correlation with ultrasound is recommended. ASSESSMENT CATEGORY: BIRADS Category 0: Incomplete. Need additional imaging evaluation. A letter regarding these results will be sent to the patient by the facility within 30 days. Approximately 10% of breast cancers are not detected by mammography. A normal mammogram should not delay biopsy of a clinically suspicious abnormality. Electronically Signed: Anam Peña MD at 8:33 EDT ,
--- NOTE | 2022-02-22 15:09 | US_ITS ---
STUDY: ULTRASOUND BREAST - RIGHT REASON FOR EXAM: Female, 77 years old. Follow-up for right lumpectomy and drainage of prior abscess. TECHNIQUE: Axial and longitudinal images of the RIGHT breast were performed with a high resolution ultrasound transducer. # OF IMAGES: 18 COMPARISON: Comparison is made with prior mammogram done earlier today. FINDINGS: RIGHT Breast: Persistent 2.8 cm x 3.7 cm x 2.2 cm complex heterogeneous soft tissue density at the 10 o''clock position of the breast at 9 cm from nipple. The margins are irregular. A biopsy is recommended for further evaluation. US/Breast Limited Unilateral IMPRESSION: Persistent 2.8 cm x 3.7 cm x 2.2 cm complex solid and cystic mass at the 10 o''clock position of the breast on the right side with some nipple. A biopsy is recommended for further evaluation. ASSESSMENT CATEGORY: BIRADS Category 4: Suspicious - Biopsy Should Be Considered. A letter regarding these results will be sent to the patient by the facility within 30 days. Electronically Signed: Anam Peña MD at 8:35 EDT ,
== END | disposition home or self-care (01) ==
LOC: OPBI 14:25
PROVIDERS: PCP Nurse Practitioner; Visit Provider Student in an Organized Health Care Education/Training Program
DX: C50.311 Malignant neoplasm of lower-inner quadrant of right female breast (principal); Z17.0 Estrogen receptor positive status [ER+]
CPT/HCPCS: 76642; 77062; 77066; G0279

== ENCOUNTER 2022-04-02 05:48 | Day surgery (SDC) | payer MEDICARE, BC, SELFPAY ==
--- NOTE | 2022-04-01 | BRBX_PTH ---
PATIENT: RUTH THOMSON LOC: [facility] [place] U#:[id number] AGE/SX: 77/F ROOM: RE04/02/[address]: Dr. Sherin Linton MD : [id number] BED: DIS: 04/02/2022 SPEC #: [id number] RECD: 04/02/22 10:24 STATUS: ANGELIKA CHUNG #: [id number] JT: 04/01/22 00:[address]: Sherin Linton DEPT: SURGICAL PATHOLOGY RECD BY: Renzo Byrd ENTERED: 04/02/22 10:27 SP TYPE: BREAST BX OT DR: Leilani Coronado, ANIMAL BIOLOGIST-C Tissues: Right breast, NOS Procedures: Surgery Specimen Level V HEADER OPERATION: Biopsy, excisional breast PRE-OP DIAGNOSIS: Abnormal mammogram, status post right breast lumpectomy TISSUE SUBMITTED: Right breast mass, skin is lateral, stitch is superior MICROSCOPIC DIAGNOSIS Right breast mass, excisional biopsy: Extensive dense fibrosis, focal chronic inflammation, histiocytes, foreign body giant cell reaction and focal areas of old hemorrhage. Skin, no pathologic diagnosis. Negative for atypia or malignancy. See comment. REMINGTON:navid 04/05/2022 COMMENT Please make reference to previous specimen ([id number]), right breast mass, needle localization lumpectomy with diagnosis of ?invasive ductal carcinoma and ductal carcinoma in situ.? MICROSCOPIC DESCRIPTION Slides are reviewed. GROSS DESCRIPTION Received in fixative is one container labeled with the patient's name and designated right breast mass, skin is lateral, stitch is superior. The specimen consists of a piece of fibroadipose tissue measuring 4 x 3.5 x 2 cm. No needle localization is noted. The specimen is oriented as follows: stitch - superior, skin - lateral. The specimen is inked as follows: anterior - yellow, posterior - black, superior - blue, inferior - green, medial - red and lateral - orange. The skin piece on lateral margin measures 3.5 x 0.6 cm. A central healed scar is noted on the skin piece. The specimen is serially sectioned and reveals castillo-yellow adipose cut surfaces mixed with castillo-white fibrous area. No obvious mass lesion is identified. The entire specimen is submitted in eight cassettes. Cassette 1 contains most lateral portion of the specimen including skin. Cassette 8 contains the most medial portion. / SJ:rg 04/02/2022 TC:5 CPT: 33290
[2022-04-02 06:21] VITALS: BP 145/68; PULSE 88; RESP 18; TEMP 36.3; O2SAT 98; BMI 37.9
[2022-04-02] MEDS: Lactated Ringers 1,000 ML 15 ML IV (06:30)
--- NOTE | 2022-04-02 07:15 | PCM.HP.STD ---
HPI - General HPI Narrative RUTH THOMSON, is a 77 F who presents for right breast excisional biopsy. Patient's ultrasound was given a BI-RADS 4 however this is the area of incision of the large seroma which was previously 12 cm x 12 cm which was excised at the time of surgery and patient is status post radiation as well. from office visit 02/25/22: HPI: RUTH THOMSON, is a 77 F who presents to the office today for for 1 year follow-up status post right lumpectomy and excision of right breast seroma.? Patient did complete radiation did not want chemotherapy had 1 out of 3 nodes positive.? Patient is currently on anastrozole.? Patient had a follow-up mammography as well as ultrasound which was given a BI-RADS 4 due to irregular lesion at the area of 9:00 incision/scar.? This was the location of patient's large seroma cavity which was excised and skin was also curetted to help prevent recurrent seroma.? Patient otherwise denies any pain or any issues in her breast.? Patient did undergo a right total knee about 5 weeks ago. [facility] Medical History (Updated 02/25/22 @ 09:[address] 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 Post-menopausal Shortness of breath on exertion Status post gamma knife treatment Wears glasses Weight loss Home Medications ascorbic acid (vitamin C) 500 mg capsule 500 mg PO DAILY 02/04/21 [History Last Taken Unknown] cholecalciferol (vitamin D3) 25 mcg (1,000 unit) capsule 25 mcg PO DAILY 02/04/21 [History Last Taken Unknown] zinc 50 mg tablet 50 mg PO DAILY 02/04/21 [History Last Taken Unknown] anastrozole 1 mg tablet 1 mg PO DAILY 06/23/21 [History Last Taken 04/02/22 05:15] acetaminophen 500 mg tablet 1,000 mg PO Q8 #100 tabs 01/21/22 [Rx Last Taken Unknown] Allergy/AdvReac Type Severity Reaction Status Date / Time No Known Allergies Allergy Verified 04/02/22 06:18 Family History Mother Colon cancer Father Colon cancer Cancer Liver Brother Myocardial infarction Brother Sepsis Surgical History (Updated 03/26/22 @ 13:00 by Karen Muñoz) History of right breast biopsy (~02/2021) 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 Status post right breast lumpectomy Social History household members: spouse Smoking Status: Never smoker second hand exposure: No alcohol intake: current alcohol intake frequency: holidays/special occasions only substance use type: does not use caffeine: Yes Type: coffee Number of servings: 2 what type of physical activity do you participate in: none chun/samaritan: Linda seatbelt use: always do you feel safe at home: Yes Vital Signs Vital Signs Vital Signs: 04/02/22 06:20 04/02/22 06:21 Temperature 97.3 F L Temperature Source Temporal Pulse Rate 88 Respiratory Rate 18 Respiratory Pattern Normal Blood Pressure 145/68 H Blood Pressure Mean 93 Blood Pressure Source Monitor Blood Pressure Position Semi-Fowlers Blood Pressure Location Left Arm Pulse Ox 98 Oxygen Delivery Method Room Air Weight Weight: 242 lb 6.4 oz Body Mass Index (BMI) 37.9 Physical Exam Const alert, oriented x3 and no apparent distress HEENT normocephalic and head/scalp atraumatic Chest Chest Narrative: Right breast: 9:00 area incision does cause some distortion and dimpling. No change in overlying skin, nontender. Resp normal respiratory effort Cardio regular rate GI soft to palpation and non-tender; Negative for non-distended Extremity no clubbing, cyanosis or edema Neuro CN's II-XII intact bilaterally Psych mental status grossly normal Assessment & Plan Assessment/Plan (1) Abnormal mammogram of right breast: (2) Status post right breast lumpectomy: PLAN: Plan Plan for excisional biopsy as discussed with patient that if we did not normal ultrasound-guided biopsy likely this area would be called suspicious every year. Patient does understand currently there is some pulling of the nipple laterally this may not be completely corrected however patient was okay with proceeding. Patient was agreeable with plan. Sherin Linton M.D. Pager: [phone] [facility] [address] [place] [address], [facility], [address] [place] [id number] Office: [phone]
[2022-04-02] MEDS: Cefazolin 2 GM in 0.9% Normal Saline 100 ML IV (07:27)
--- NOTE | 2022-04-02 08:01 | PCM.OPRPT ---
Report of Operation Date of Procedure: 04/02/22 Pre-Operative Diagnosis: Right breast mass Post-Operative Diagnosis: Same Surgery/Procedure Performed:: Excisional right breast biopsy Surgeon: Sherin Linton power generating plant operator: Venessa Shin power generating plant operator: Yaneli Daniels Type of Anesthesia: General/Supplemental Anesthesiologist: Nakul Guerra Special Medications: Ancef 2 g IV x1 Specimen's removed: Right breast mass Estimated Blood Loss (mL): < 10 cc Description of Procedure: Patient was brought to the operating room and placed supine on the operating table. Timeout was completed verifying correct patient, procedure, site, positioning, special equipment prior began procedure. General anesthesia was induced. Right breast was prepped and draped in usual sterile fashion. 15 blade scalpel was used to do an elliptical incision around the previous 9:00 incision. This was deepened with electrocautery until normal breast tissue was reached. The right breast mass was sent to pathology after orienting specimen. Electrocautery was used for hemostasis. The wound was irrigated with sterile water. No attempt at would was made to close the space. The incision was closed with interrupted subdermal sutures of 3-0 Vicryl sutures and skin was closed with 4-0 running Monocryl. Steri-Strips were placed on the skin with an OpSite. Fluffs were placed with a surgical bra. Patient tolerated procedure well was taken to the postanesthesia care unit in stable condition. Complications none
--- NOTE | 2022-04-02 08:05 | DCINST_ITS ---
Discharge Instructions Diet Discharge Diet: No restrictions Activity Discharge Activity: May Not Drive (for 2-3 days or while taking narcotic pain meds.) May shower in (days): 1 Lifting Restrictions: 10 pounds for 1 week. Dressing / Incision Call your doctor if your incision/area has: Continuous Slow Oozing, Sudden Increased Bleeding, Increased Pain/ Swelling and Increased Redness Call your doctor if you observe: Fever of 101 or Higher Suture Line Care: Avoid Pulling/Pushing and Avoid Pinching/Bending Remove Dressing in: 1 day Additional Dressing/Incision Instructions:: Remove bulky dressing tomorrow. May leave any op-site dressing for 3-4 days. Okay to remove Steri-Strips from the breast incision in 7 to 10 days with annual follow-up. Follow Up Care Please Follow Up With: Sherin Linton MD When: Please call [phone] for an appointment to be seen in 2 week. Test Results: Test results from this visit will be discussed in further detail at your follow-up appointment, if applicable. Discharge Plan Admission Attending Provider: Sherin Linton Primary Care Provider: Leilani Tomlinson NP Discharge Orders/Prescriptions Prescriptions: Continued zinc 50 mg tablet 50 mg PO DAILY cholecalciferol (vitamin D3) 25 mcg (1,000 unit) capsule 25 mcg PO DAILY ascorbic acid (vitamin C) 500 mg capsule 500 mg PO DAILY anastrozole 1 mg tablet 1 mg PO DAILY acetaminophen 500 mg Tablet 1,000 mg PO Q8 Qty: 100 0RF Rx Instructions: Do not take more than 3000 mg Tylenol in a 24-hour period. Referrals / Follow Up: Leilani Tomlinson NP, APPLICATIONS SUPPORT ANALYST-C [Primary Care Provider] - Disposition Discharge Orders: Discharge Patient (Routine); Ordered 04/02/22 Ordered By: Dr. Sherin Linton
[2022-04-02 08:44] VITALS: BP 137/69; BP 145/68; PULSE 83; RESP 18; TEMP 36.8; O2SAT 98
[2022-04-02 09:00] VITALS: BP 145/68; PULSE 80; RESP 18; O2SAT 96
[2022-04-02 09:13] VITALS: BP 145/68; BP 146/76; PULSE 80; RESP 18; TEMP 36.1; O2SAT 96
[2022-04-02 09:46] VITALS: BP 145/68
== END 2022-04-02 09:56 | disposition home or self-care (01) ==
LOC: SDC 05:48 → AC 06:03
PROVIDERS: PCP Nurse Practitioner; Visit Provider Surgery
PROC: (CPT 19120; principal; 2022-04-02 07:15)
DX: N60.31 Fibrosclerosis of right breast (principal); Z85.3 Personal history of malignant neoplasm of breast
CPT/HCPCS: 19120; 00400; 88305; 88307; J7120; J2405

== ENCOUNTER → 2023-02-24 | Outpatient (CLI) | payer MEDICARE, BC, SELFPAY ==
--- NOTE | 2023-02-24 11:42 | BI_ITS ---
MAMMOGRAPHY - BILATERAL SCREENING REASON FOR EXAM: Female, 78 years old. Routine annual screening examination. PERTINENT HISTORY: Personal history of right-sided breast cancer at age 76 status post lumpectomy and radiation therapy in March 2021. A follow-up right excisional biopsy was also performed to remove scar tissue from lumpectomy in March 2022. TECHNIQUE: Digital bilateral breast mihaela (3D mammographic acquisition) in the CC and MLO projections. 2-D mediolateral oblique (MLO) and craniocaudad (CC) views of both breasts were obtained. CAD: Full Field Digital Mammography with Computer Added Detection was performed. COMPARISON: Screening mammogram from 02/22/2022, 02/13/2021. Right breast diagnostic mammogram from 03/17/2021. Right breast ultrasound from 02/22/2022. FINDINGS: Breast Composition: There are scattered areas of fibroglandular density. There is a persistent area of architectural distortion in the right upper outer breast in location of prior surgical resection. This appears mildly improved in size and prominence from prior mammogram likely due to resection of the residual lesion seen on ultrasound from 02/22/2022.. However, a follow-up diagnostic ultrasound is recommended to exclude recurrent disease. Stable biopsy markers and postbiopsy scarring in the right lower central breast. Right axillary lymph node resection surgical clips are noted. No suspicious masses or suspicious calcifications in the left breast. BI/SCRN MAMM (CAD)W/MIHAELA BILAT IMPRESSION: Further imaging evaluation recommended, as described above. (E) Recall Side: Right Breast ASSESSMENT CATEGORY: BIRADS Category 0: Incomplete. Need additional imaging evaluation. A letter regarding these results will be sent to the patient by the facility within 30 days. Recommendation: Follow up diagnostic ultrasound of the right upper outer breast at location of persistent architectural distortion. Approximately 10% of breast cancers are not detected by mammography. A normal mammogram should not delay biopsy of a clinically suspicious abnormality. Electronically Signed: Kole Bey DO at 15:33 EDT ,
== END | disposition home or self-care (01) ==
LOC: OPBI 11:41
PROVIDERS: PCP Nurse Practitioner; Referring Provider Student in an Organized Health Care Education/Training Program; Visit Provider Student in an Organized Health Care Education/Training Program
DX: Z85.3 Personal history of malignant neoplasm of breast (principal); Z12.31 Encounter for screening mammogram for malignant neoplasm of breast
CPT/HCPCS: 38500; 77063; 77067

== ENCOUNTER → 2023-02-28 | Outpatient (CLI) | payer MEDICARE, BC, SELFPAY ==
--- NOTE | 2023-02-28 08:22 | US_ITS ---
STUDY: ULTRASOUND BREAST - RIGHT REASON FOR EXAM: Female, 78 years old. Prior lumpectomy. Abnormal mammogram. TECHNIQUE: Axial and longitudinal images of the RIGHT breast were performed with a high resolution ultrasound transducer. # OF IMAGES: 20 COMPARISON: Comparison is made with prior mammogram dated February 24, 2023. FINDINGS: RIGHT Breast: The upper lateral aspect of the right breast was examined with ultrasound. There is evidence of prior lumpectomy with scar formation at the 10:00 position breast at 9 sinus from nipple. There is posterior acoustical shadowing. US/Breast Limited Unilateral IMPRESSION: Postsurgical changes seen at the biopsy site. ASSESSMENT CATEGORY: BIRADS Category 2: Benign. A letter regarding these results will be sent to the patient by the facility within 30 days. Electronically Signed: Anam Peña MD at 16:40 EDT ,
== END | disposition home or self-care (01) ==
LOC: OPUS 08:20
PROVIDERS: PCP Nurse Practitioner; Referring Provider Student in an Organized Health Care Education/Training Program; Visit Provider Student in an Organized Health Care Education/Training Program
DX: R92.8 Other abnormal and inconclusive findings on diagnostic imaging of breast (principal)
CPT/HCPCS: 76642

== ENCOUNTER → 2024-02-27 | Outpatient (CLI) | payer MEDICARE, BC, SELFPAY ==
--- NOTE | 2024-02-27 11:46 | BI_ITS ---
MAMMOGRAPHY - BILATERAL SCREENING REASON FOR EXAM: Female, 79 years old. Routine annual screening examination. PERTINENT HISTORY: Personal history of breast cancer. History of prior right lumpectomy with radiation therapy. TECHNIQUE: Digital bilateral breast mihaela (3D mammographic acquisition) in the CC and MLO projections. 2-D mediolateral oblique (MLO) and craniocaudad (CC) views of both breasts were obtained. CAD: Full Field Digital Mammography with Computer Added Detection was performed. COMPARISON: Comparison is made with prior examination February 24, 2023 and February 22, 2022. FINDINGS: Breast Composition: There are scattered areas of fibroglandular density. There are no dominant masses or suspicious calcifications. Persistent architectural distortion in the upper outer quadrant of the right breast from prior lumpectomy and radiation. Surgical clips are also seen in the deep central slightly lateral aspect of the right breast. Surgical clips are also seen in the right axilla. No other significant abnormalities are identified. There has been no significant change since the prior study. BI/SCRN MAMM (CAD)W/MIHAELA BILAT IMPRESSION: Stable bilateral screening mammogram. Yearly follow-up mammogram recommended. (A) ASSESSMENT CATEGORY: BIRADS Category 2: Benign. A letter regarding these results will be sent to the patient by the facility within 30 days. Approximately 10% of breast cancers are not detected by mammography. A normal mammogram should not delay biopsy of a clinically suspicious abnormality. [id number] Electronically Signed: Anam Peña MD at 12:48 EDT ,
== END | disposition home or self-care (01) ==
LOC: OPBI 11:44
PROVIDERS: PCP Nurse Practitioner; Referring Provider Student in an Organized Health Care Education/Training Program; Visit Provider Student in an Organized Health Care Education/Training Program
DX: Z12.31 Encounter for screening mammogram for malignant neoplasm of breast (principal); Z85.3 Personal history of malignant neoplasm of breast
CPT/HCPCS: 77063; 77067

== ENCOUNTER → 2025-02-11 | Outpatient (CLI) | payer MEDICARE, BC, SELFPAY ==
[2025-02-11 16:23] LABS: Hematocrit 45.7 % (37-47); Hemoglobin 14.1 g/dL (12.0-15.0); Immature Granulocytes Count 0.030 X10^3/uL (0.0-0.0); Mean Corp Hgb Conc 30.9 g/dL (32-36); Mean Corpuscular Volume 85.7 fL (81-99); Mean Platelet Vol. 11.0 fl (6.2-12.0); NRBC Flagged by Analyzer 0 % (0-5); Platelet Count 238 K/mm3 (150-450); RBC Distribution Width CV 15.2 % (11.6-14.6); RBC Distribution Width SD 47.6 fl (35.1-43.9); Red Blood Count 5.33 M/mm3 (4.2-5.4); White Blood Count 8.4 K/mm3 (4.4-11.0)
[2025-02-11 16:50] LABS: CRP 10.90 mg/L (0.0-3.0)
== END | disposition home or self-care (01) ==
LOC: LAB 14:01
PROVIDERS: PCP Nurse Practitioner; Referring Provider Specialist; Visit Provider Specialist
DX: Z96.642 Presence of left artificial hip joint (principal)
CPT/HCPCS: 36415; 85025; 85652; 86140

== ENCOUNTER → 2025-02-20 | Outpatient (CLI) | payer MEDICARE, BC, SELFPAY ==
--- NOTE | 2025-02-20 09:10 | NM_ITS ---
PROCEDURE: BONE SCAN THREE PHASE 02/20/2025 REASON FOR EXAM: MECHANICAL LOOSENING OF INTERNAL L HIP PROSTHETIC TECHNIQUE: Blood flow, blood pool, and delayed phase imaging of the hips and pelvis after radiopharmaceutical administration. RADIOPHARMACEUTICAL: 28 mCi Technetium-99m MDP IV COMPARISON: None available. FINDINGS: Images demonstrate a left-sided defect consistent with a left hip prosthesis. Blood flow: Blood flow images demonstrate no significant focus of abnormal blood flow. Blood pool: Blood pool images show no significant focus of abnormal uptake. Delayed: Delayed images demonstrate no significant abnormal uptake to suggest the presence of prosthesis loosening. Limited imaging of the spine shows increased uptake, consistent with significant degenerative changes, however. If not already performed, would recommend lumbar spine plain film correlation. NM/Bone Scan Three Phase IMPRESSION: 1. On three-phase bone scan, no findings are seen to suggest the presence of lo osening of the left hip prosthesis. 2. Limited imaging of the spine shows increased uptake, most likely due to dege nerative changes. If not already performed, would recommend lumbar spine plain film correlation. Reading Location: [place] [id number]
== END | disposition home or self-care (01) ==
PROVIDERS: PCP Nurse Practitioner; Referring Provider Specialist; Visit Provider Specialist
DX: M86.9 Osteomyelitis, unspecified (principal)
CPT/HCPCS: 78315; A9503

== ENCOUNTER → 2025-02-27 | Outpatient (CLI) | payer MEDICARE, BC, SELFPAY ==
--- NOTE | 2025-02-27 11:00 | BI_ITS ---
EXAM: SCRN MAMM (CAD)W/MIHAELA BILAT DATE: 02/27/2025 CLINICAL HISTORY: F, Age 80 y/o , ANNUAL SCREENING, H/O BREAST CANCER Personal history of breast cancer. History of prior right lumpectomy with radiation treatment. TECHNIQUE: SCRN MAMM (CAD)W/MIHAELA BILAT COMPARISON: Prior exam(s) dated February 27, 2024.. FINDINGS: TISSUE DENSITY: There are scattered areas of fibroglandular density. Bilateral Breast Mammographic Findings: No significant masses, calcifications or other abnormalities are identified. Once again, the patient is status post lumpectomy in the upper lateral aspect of the right breast with resultant breast deformity and postoperative scarring. Surgical clips are also seen in the deep central slightly lateral aspect of the right breast. No suspicious masses, areas of developing architectural distortion, or suspicious calcifications. There has been no significant interval change. BI/SCRN MAMM (CAD)W/MIHAELA BILAT IMPRESSION: Stable examination. OVERALL FINAL ASSESSMENT BI-RADS 2: BENIGN RECOMMENDATION: Routine annual follow-up in 1 Year A letter with findings and recommendations will be mailed to the patient. Reading Location: [facility]
== END | disposition home or self-care (01) ==
LOC: OPBI 10:46
PROVIDERS: PCP Nurse Practitioner; Referring Provider Student in an Organized Health Care Education/Training Program; Visit Provider Student in an Organized Health Care Education/Training Program
DX: Z12.31 Encounter for screening mammogram for malignant neoplasm of breast (principal); Z85.3 Personal history of malignant neoplasm of breast; Z92.3 Personal history of irradiation
CPT/HCPCS: 77063; 77067